=== PATIENT | female | born 1965 | race Caucasian/White ===

== ENCOUNTER 2024-05-20 16:14 | Emergency (ER) | payer SELFPAY ==
[2024-05-20 16:16] VITALS: BP 149/90; PULSE 91; RESP 20; TEMP 36.3; O2SAT 98
--- NOTE | 2024-05-20 16:31 | ED.GENADUL_ITS ---
Discharge Plan Disposition Patient Disposition: Home Condition: Stable Discharge Details Clinical Impression: Dysuria Primary Care Provider: None,None ED Provider: Corey Chávez Home Meds and New Rx's Prescriptions: New ciprofloxacin HCl 500 mg tablet 500 mg PO BID 10 Days Qty: 20 0RF Continued cyclobenzaprine 10 mg tablet 10 mg PO HS Discharge Instructions Instructions: Ciprofloxacin (Systemic), Dysuria (ED) Additional Instructions: You were seen in the emergency department for your dysuria and urinary freque ncy, you have had a history of chronic UTIs, unfortunately your AZO did interfere with her ability to run an accurate test though there was some scant bacteria present, I am treating you empirically with ciprofloxacin, you need to monitor your condition closely and return for any severe acute worsening especially with fever, spread to flank pain, nausea and weakness. Stay well- hydrated. Follow-up with PCP to seek referral to our Urology service for chronic UTIs. Referrals: [facility] [Provider Group] Shahida Dixon MD [ [facility] STAFF PHYSICIAN] - Discharge Data Discharge Date/Time-TO BE ENTERED AT DEPARTURE: 05/20/24 17:06 HPI General Date/Time Provider Initiated Documentation: 05/20/24 16:31 . HPI Narrative: 58 year-old female presents to ED today by RCT/ambulating with a chief complaint of urinary frequency/dysuria, long history of chronic UTIs since she was 11 y/o, with onset noted today. Quality described as burning, bladder feeling full, no radiation to flank pain, fever, nausea, vomiting, hematuria. Severity is described as moderate. Palliating factors include took AZO one hour prior to arrival. Provoking factors include nothing specific. Events leading up to the incident/Associated Symptoms: Patient states she has many allergies/reactions to many UTI treatments over the years, states cipro always seems to work well for her. Recently relocated to [place] from [place] and doesn't have access to her allergies/reactions. Patient not anticoagulated. Related Data Home Medications ?Medication ?Instructions ?Recorded ?Confirmed ciprofloxacin HCl 500 mg tablet 500 mg PO BID UTI 10 days #20 tabs 05/20/24 cyclobenzaprine 10 mg tablet 10 mg PO HS 05/20/24 05/20/24 Previous Rx's ?Medication ?Instructions ?Recorded ciprofloxacin HCl 500 mg tablet 500 mg PO BID UTI 10 days #20 tabs 05/20/24 Allergies Allergy/AdvReac Type Severity Reaction Status Date / Time Unable to Assess Allergy Unverified 05/20/24 16:29 General Stated Complaint: Urinary RADHA: 4 Review of Systems All systems reviewed & are unremarkable except as noted in HPI and below Exam Narrative Exam Narrative: GENERAL APPEARANCE: Well-nourished, non-toxic, awake and alert, atraumatic, no acute distress. SKIN: Warm, pink, dry, intact, without rashes/lesions/ulcerations. HEAD: Normocephalic, atraumatic, normal hair distribution for gender/age. EYES: Normal conjunctiva, no exudates on lids/lashes. ENT: Nares patent, no circumoral cyanosis, no facial swelling NECK: Supple, trachea midline, painless cervical ROM. LUNGS/CHEST: Non-labored respirations, normal A/P diameter, symmetrical expansion, no chest wall deformity HEART (CV/PV): No peripheral edema, no JVD. ABDOMEN: Soft, non-distended, no guarding, no suprapubic tenderness, no CVA tenderness to percussion bilaterally. MSK: Normal ROM, no swelling/deformity to bilateral UEs or LEs, moving all extremities without weakness, no cyanosis, spine midline without tenderness, normal curvature. NEURO: Mental Status AAOx4 - alert to person, place, time, events No facial droop, no forehead involvement. Motor: No focal weakness - strength 5/5 in bilateral UEs and LEs, proximal and distal, symmetric. Sensory: sensation intact to light touch globally. Gait normal: patient ambulated without ataxia into ED room. PSYCH: euthymic, cooperative, pleasant, appropriate speech Course Vital Signs Vital signs: Vital Signs Temperature 36.3 C L 05/20/24 16:16 Pulse 91 H 05/20/24 16:16 Respiratory Rate 20 05/20/24 16:16 Blood Pressure 149/90 H 05/20/24 16:16 Pulse Oximetry 98 05/20/24 16:16 Temperature 36.3 C L 05/20/24 16:16 Temperature Source Oral 05/20/24 16:16 Pulse 91 H 05/20/24 16:16 Respiratory Rate 20 05/20/24 16:16 Blood Pressure 149/90 H 05/20/24 16:16 Blood Pressure Position Sitting 05/20/24 16:16 Pulse Oximetry 98 05/20/24 16:16 Oxygen Delivery Method Room Air 05/20/24 16:16 Oxygen Flow Rate 0 05/20/24 16:16 Medical Decision Making This dictation utilizes [id number] dictation software and may contain unedited grammatical errors. 58 year-old female presents to ED today by RCT/ambulating with a chief complaint of urinary frequency/dysuria, long history of chronic UTIs since she was 11 y/o, with onset noted today. Quality described as burning, bladder feeling full, no radiation to flank pain, fever, nausea, vomiting, hematuria. Severity is described as moderate. Palliating factors include took AZO one hour prior to arrival. Provoking factors include nothing specific. Events leading up to the incident/Associated Symptoms: Patient states she has many allergies/reactions to many UTI treatments over the years, states cipro always seems to work well for her. Recently relocated to [place] from [place] and doesn't have access to her allergies/reactions. Patients' medical history: Chronic UTIs, history of pyelonephritis. Family and social history: Noncontributory. Pertinent exam findings / vital signs include no suprapubic tenderness, nontoxic vitals, no CVA tenderness to percussion bilaterally. Differential / pathologies of concern include urinary tract infection, unlikely sepsis, unlikely pyelonephritis. Diagnostic studies of: -Urinalysis-hopeful that her Azo dose has not interfered with her ability to test sample. -UA shows interference Interventions of: -Rx for ciprofloxacin. ED Course/Assessment/Plan: 58-year-old female presents with chronic UTIs, she has started taking AZO which interfered with her ability to take a sample, she does not have any CVA tenderness and has no suprapubic tenderness given her history of chronic UTI and her consistency of symptoms I am prescribing her an antibiotic, she will return for any acute worsening despite treatment especially with hematuria, fever, flank pain developing. Findings not consistent with pyelonephritis, obstructive uropathy. Disposition of dysuria. Patient verbalized understanding of the plan and return to ED criteria and engaged in shared decision making. Medical Records Medical records reviewed: Yes I reviewed the patient's medical records. Lab Data Lab results reviewed: Yes I reviewed the patient's lab results. 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 OPERATOR Ur Specific Falcon (1.005-1.025) 1.020 Urine Protein (Neg-Trace) mg/dL Color Interference Urine Ketones (Negative) mg/dL Color Interference Urine Blood (Negative) Color Interference Urine Nitrite (Negative) Color Interference Urine Bilirubin (Negative) Color Interference Urine Urobilinogen (Up to 0.2) mg/dL Color Interference Ur Leukocyte Esterase (Negative) Color Interference Urine RBC (0-2) HPF 20-50 H Urine WBC (0-5) HPF 0-2 Ur Epithelial Cells (Negative) HPF Negative Urine Crystals (Negative) HPF Negative Urine Bacteria (Negative) HPF Rare Urine Casts (Negative) LPF Negative Urine Mucus (Negative) Negative Ur Culture Indicated? No Urine Glucose (Negative) mg/dL Color Interference Quality:SDOH Health Related Social Needs: Health related social needs food insecurity (Z59.41), material hardship(utilities) (Z59.12), transportation insecurity (Z59.82), problems related to housing/economic circumstances (Z59.89) PFSH All Active Problems (Updated 05/20/24 @ 16:58 by ZAINAB Parker) Dysuria (Acute) Social History Smoking/Tobacco Use Status: Former Tobacco Use Quit Date: 10/31/19 Smoking risk assessment performed?: Yes Alcohol Intake: current Alcohol Intake frequency: holidays/special occasions only Alcohol type: wine Drug use: Current Sobriety Substance use type: marijuana
[2024-05-20 16:32] VITALS: BP 149/90; PULSE 91; RESP 20; TEMP 36.3; O2SAT 98
[2024-05-20 16:50] LABS: Clarity Clear (Clear)
[2024-05-20 16:51] LABS: Bilirubin Color Interference (Negative); Blood Color Interference (Negative); Glucose Color Interference mg/dL (Negative); Ketones Color Interference mg/dL (Negative); Leukocyte Esterase Color Interference (Negative); Nitrite Color Interference (Negative); Urobilinogen Color Interference mg/dL (Up to 0.2)
[2024-05-20 16:54] LABS: Bacteria Rare HPF (Negative); C & S Indicated? No; Casts Negative LPF (Negative); Crystals Negative HPF (Negative); Epithelial Cells Negative HPF (Negative); Mucus Negative (Negative); RBC 20-50 HPF (0-2); WBC 0-2 HPF (0-5)
[2024-05-20] MEDS: Ciprofloxacin 500 MG TAB PO (17:05)
--- OUTSIDE RECORDS SUMMARY | 2024-05-20 17:17 | XMS_ITS | Encounter Summary ---
Author Organization [facility] Address [address] [place] [address] Care Team Providers Care Office Equipment Mechanic Name Role Phone Unavailable Primary Care Provider Unavailabl e Encounter Details Date Type Department Care Team (Late st Contact Info) Description 09/11/2009 Results Only [facility] Laboratory Services - [facility] ([facility] [address], [place] [id number] Hussein Noland MD [address] [place] [address] Social History Tobacco Use Types Packs/Day Years Used Date Smoking Tobacco: Never Assessed Comments Unknown Sex and Gender Information Value Date Recorded Sex Assigned at Not on file Legal Sex Female 18:27 EST Gender Identity Not on file Sexual Orientation Not on file documented as of this encounter Plan of Treatment Not on file documented as of this encounter Procedures Procedure Name Priority Date/Time Associated Diagnosis Comments SURGICAL PATHOLOGY Routine 09/11/2009 0:00 EDT documented in this encounter Results * SURGICAL PATHOLOGY (09/11/2009 0:00 EDT) Pathology Report: SURGICAL PATHOLOGY REPORT ? Reports generated via electronic interface contain original data; ? however they are lacking the format of the original report. ? Caution should be taken when reading/interpreting unformatted reports. ? Name: ? EMRICK, MARK M ? Accession #: ? [id number] ? : ? 1965 (Age: 44) ??F ? Collect Date: ? 09/11/2009 ? Location: ? [facility] ? Receive Date: ? 09/11/2009 ? Provider: HUSSEIN NOLAND MD ? 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 Final Pathologic Diagnosis: ? A. ?Stomach, antrum, biopsies: ? 1. ?Reactive gastropathy. ? 2. ? Immunohistochemical stains for Helicobacter pylori are negative. ? B. ?Stomach, body, biopsies: ? 1. ?Mild, chronic gastritis. ? 2. ? Negative for Helicobacter pylori on H & E stained slides. ? C. ?? Esophagus, lower, biopsies: ? 1. ?? Squamocolumnar junctional mucosa with mild, chronic inflammation with reactive ?epithelial changes. ? 3. ?Negative for intestinal metaplasia/dysplasia. ? C. ?Esophagus, mid, biopsies: ? 1. ?Squamous mucosa without specific abnormality. ? Comment: ? Immunohistochemical staining was performed on this case to further ? characterize the lesion. ??Positive and negative controls stained appropriately. ? Block ?Antibody (Clone) ? Result ? A ?H. pylori (polyclonal, [facility]) ? Negative ? Results have been communicated to Dr. Noland on 09/12/2009 at 3 PM. ( ? Leanna)/mpl ? NOTE: ??One or more of the reagents used in immunohistochemical testing in this case may not have been cleared or approved by the U.S. Food and Drug ? Administration (FDA). ??The FDA has determined that such clearance or approval is not necessary. ??These tests are used for clinical purposes. ??They should not be regarded as investigational or for research. ??These reagents' ??performance ? characteristics have been determined by [facility]. ??This ? laboratory is certified under the Clinical Laboratory Improvement Amendments of 1988 (CLIA-88) as qualified to perform high complexity clinical laboratory ? testing. ? Document reviewed and electronically signed by: ? Jolene Wilkinson MD ? Report ??Date: 09/14/2009 16:22 ? By the signature above, the attending physician certifies that he/she has ? personally conducted a gross and/or microscopic examination of the described ? specimens and rendered or confirmed the above diagnosis. ? Specimen(s) Received: ? A. ?Gastric antrum ? B. ? Gastric body ? C. ? Lower esophagus ? D. ? Mid esophagus ? Clinical History: ? Epigastric/chest pain immediately after eating ? Gross Description: ? Received in [facility]'s fixative labelled Mark Valdes and #1 gastric ?? antrum are two biopsies, each measuring 0.3 x 0.3 x 0.2 cm. ??The specimens are submitted intact as (A). ? Received in [facility]'s fixative labelled Mark Valdes and #2 gastric body are two biopsies measuring 0.1 x 0.1 x 0.1 cm and 0.4 x 0.2 x 0.2 cm. ??The ? specimens are submitted intact as (B). ? Received in [facility]'s fixative labelled Mark Valdes and #3 lower ? esophagus are two biopsies measuring 0.3 x 0.2 x 0.2 cm and 0.5 x 0.2 x 0.1 cm. The specimens are submitted intact as (C). ? [facility] fix[facility] labelled Mark Valdes and #4 mid esophagus are two biopsies measuring 0.3 x 0.2 x 0.1 cm and 0.5 x 0.2 x 0.2 cm. ??The ? specimens are submitted intact as (D). ??(MADELINE Sandoval)/julien ? End of Report ? KINA CRUZ 09/11/2009 09/11/2009 19: 44 EDT us Hussein Noland MD PATHOLOGY ORDERABLES Final Resul t KINA CRUZ [address] [place] [address] documented in this encounter Visit Diagnoses Not on filedocumented in this encounter
--- OUTSIDE RECORDS SUMMARY | 2024-05-20 17:17 | XMS_ITS | Encounter Summary ---
Author Organization [facility] Address [address] [place] [address] Care Team Providers Care Roustabout Crew Name Role Phone Shahida Dixon MD Primary Care Provider [phone] Encounter Details Date Type Department Care Team (Late st Contact Info) Description 07/19/2010 Abstract [facility] General Surgery - [address] [id number] Michael Frausto MD [address] [facility], [address] [place] [phone] Social History Tobacco Use Types Packs/Day Years Used Date Smoking Tobacco: Never Assessed Comments Unknown Sex and Gender Information Value Date Recorded Sex Assigned at Not on file Legal Sex Female 18:27 EST Gender Identity Not on file Sexual Orientation Not on file documented as of this encounter Plan of Treatment Not on file documented as of this encounter Visit Diagnoses Not on filedocumented in this encounter Care Teams Roustabout Crew Relationship Specialty Start Date End Date Shahida Dixon MD [address] [place] [phone] PCP - General 09/13/09 documented as of this encounter
--- OUTSIDE RECORDS SUMMARY | 2024-05-20 17:17 | XMS_ITS | Encounter Summary ---
Author Organization [facility] Address [address] [place] [address] Care Team Providers Care Piano Regulator Name Role Phone Shahida Dixon MD Primary Care Provider [phone] Encounter Details Date Type Department Care Team (Late st Contact Info) Description 06/28/2010 Abstract [facility] General Surgery - [address] [id number] Michael Frausto MD [address] [facility], [address] [place] [address] Social History Tobacco Use Types Packs/Day Years [...] Diagnoses Not on filedocumented in this encounter Historical Medications * This list may reflect changes made after this encounter. dicyclomine (BENTYL) 10 mg capsule Take 10 mg by mouth 4 times daily as needed. 1 to 2 caps. 06/28/2010 amitriptyline (ELAVIL) 10 mg tablet Take 10 mg by mouth at bedtime. 06/28/2010 Ergocalciferol, Vitamin D2, 50,000 unit Tab Take 1 Tab by mouth. One tab 3 times weekly. 06/28/2010 lorazepam (ATIVAN) 1 mg tabletIndications :anxiety Take 1 mg by mouth 3 times daily as needed. Indications: ANXIETY 06/28/2010 HYDROCODONE BIT/ACETAMINOPHEN (HYDROCODONE-ACET AMINOPHEN ORAL) Take by mouth every 4 hours as needed. 1 to 2 prn 06/28/2010 DOCUSATE SODIUM ORAL Take 1 Tab by mouth 2 times daily. 06/28/2010 added in this encounter Care Teams Piano Regulator Relationship Specialty Start Date End Date Shahida Dixon MD [address] [place] [phone] PCP - General 09/13/09 documented as of this encounter
--- OUTSIDE RECORDS SUMMARY | 2024-05-20 17:17 | XMS_ITS | Encounter Summary ---
Author Organization [facility] Address [address] [place] [address] Care Team Providers Care Lens Silverer Name Role Phone Shahida Dixon MD Primary Care Provider [phone] Reason for Visit * Reason Comments New Patient Visit Carlos Enrique Encounter Details Date Type Department Care Team ([facility] Contact Info) Description 08/14/2010 15:00 EDT Office Visit [facility] General Surgery - [address] [id number] Michael Frausto MD [address] [facility], [address] [place] [address] Chest pain; Abdominal pain, chronic, epigastric Social History Tobacco Use Types Packs/Day Years Used Date Smoking Tobacco: Every Day Cigarettes 1 20 Smokeless Tobacco: Never Alcohol Use Standard Drinks/Week Comments No 0 (1 standard drink = 0.6 oz pur e alcohol) Comments Unknown Sex and Gender Information Value Date Recorded Sex Assigned at Not on file Legal Sex Female 18:27 EST Gender Identity Not on file Sexual Orientation Not on file documented as of this encounter Last Filed Vital Signs Vital Sign Reading Time Taken Comments Blood Pressure 127/75 08/14/2010 1449 EDT Pulse 88 08/14/2010 1449 EDT Temperature - - Respiratory Rate 18 08/14/2010 1449 EDT Oxygen Saturation - - Inhaled Oxygen Concentration - - Weight 86.2 kg (190 lb) 08/14/2010 1449 EDT Height 161.3 cm (5' 3.5) 08/14/2010 1449 EDT Body Mass Index 33.13 08/14/2010 1449 EDT documented in this encounter Progress Notes * Michael Frausto MD - 08/14/2010 1822 EDT This office note has been dictated. documented in this encounter Consult Notes * Michael Frausto MD - 08/29/2010 1209 EDT DIVISION OF GENERAL SURGERY CONSULTATION - 08/14/2010 I am asked by Dr Shahida Dixon to see Alisa Valdes in consultation because of persistent chest and abdomen pain. Our opinion is sought regarding whether she would be a candidate for antireflux procedure. HISTORY OF PRESENT ILLNESS: Alisa has a history of pain in the retrosternal area. She says it is aburning pain, it is there all the time now. Sometimes spreads to both sides of her chest, sometimesdown to the right upper quadrant. She said it started a couple years ago when she took medication initially for her multiple sclerosis. Shortly after starting that she developed the symptoms. Symptoms lasted until she stopped the medication and started Nexium. She thought it was the Nexium that made her feel better. She took Nexium for a while and then was completely asymptomatic for almost a year. She then developed more symptoms and the Nexium has not helped nor has another PPI and she has been on many of them. Her pain is constant. She had evaluation for reflux. Apparently somebody labeledher as having gastroesophageal reflux disease and she had an EGD. Apparently the EGD did not show anything to suggest any esophageal ulcerations or anything to account for persistent pain. In fact, she had fairly mild findings on EGD as I understand it. She also at some point had a pH probe, as well as manometry done. The pH probe, which I have did show some evidence of a correlation, however, I find it hard to determine since she says she has pretty much pain all the time. She refluxed according to the pH probe about 5.8% of the time, which is just above the normal range. Her manometry also showed a normal LES pressure of 20. That would speak against reflux. She had an upper GI study done at [facility] and that did not show any reflux. There was only a very small hiatal hernia apparently if any. I do not have those films to look at. She does have a history of alcohol and marijuana use, but she says she has been sober now for a year and a half and has not used any of those. PAST MEDICAL HISTORY: Includes some gastritis, at least an upper GI endoscopy showed some chronic gastritis, but she was on proton pump inhibitors at the time and they may just have identified changes from the proton pump inhibitors. She also has multiple sclerosis and that is improved since recentmedications. She has a history of hyperthyroidism, some depression and recurrent UTIs. She also hasa history of the substance abuse including alcohol and marijuana. She has had a cardiac stress testthat has been negative. She also had an ultrasound at one point that showed gallstones and she underwent a laparoscopic cholecystectomy. FAMILY HISTORY: Her family history is significant for her maternal grandfather had arthritis and heart disease. Maternal grandmother had arthritis, depression and heart disease and her mother who hashad arthritis, depression, heart disease, high blood pressure and a history of ovarian cancer. SOCIAL HISTORY: She currently is an every day smoker, smoking 1 pack a day for the past 20 years. She is not using alcohol or marijuana, as I said, for the past year and a half. ALLERGIES: ERYTHROMYCIN, which causes her anxiety. She took this when she was being treated empirically for H. pylori. She also blacks out when she takes PERCODAN. TETRACYCLINE, SULFA, CODEINE seemedto cause some or nausea and vomiting. DARVON causes her to have irritability. MEDICATIONS: Hydrocodone and Ativan. She said she was no longer using the docusate, vitamin D, the amitriptyline or the Bentyl. REVIEW OF SYSTEMS: Mainly related to what is already described in the HPI. OBJECTIVE: On physical exam, she is 190 pounds, 63 to 1/2 inches tall with a BMI of 33.13. Sclerae white. Chest is clear. Heart is regular. There is no chest tenderness or thoracic tenderness. There is some mild upper abdominal tenderness to deep palpation mainly deep in the epigastrium. I do not feel any masses or organomegaly. There is no obvious peripheral edema or other issues. ASSESSMENT: Certainly her symptoms do not sound like classic reflux. The fact that her symptoms disappeared for almost a year after stopping her multiple sclerosis medication and started again when she started taking that medication would make me suspect that the medication may have had something to do with it. She did get better while taking the Nexium, but then when she stopped the Nexium she was pain free for quite a significant period of time until her pain started again and this time the Nexium did not help, nor did any the other H2 blockers or PPIs. That would be most unusual for reflux. Certainly to have pain there all the time with no evidence of any deep ulceration or other issues does not fit with reflux nor does an LES pressure of 20 and a very marginal pH probe, which is probably just upper limit of normal variant. I believe she has pain, but I do not think this is reflux pain, I certainly do not think a wrap is indicated. There is nothing to tell me that we should consider a wrap even. I think we need to startfrom square 1 with her, she needs to be evaluated for other causes for her pain rather than reflux.She will follow up with her primary physician and her neurologist for that. Electronically Signed by Michael Frausto MD, FACS 08/29/2010 12:09 Michael Frausto MD, FACS [phone] - Michael Frausto MD, FACS - JG Job ID: SM Doc ID: [id number] Ext Doc ID: [id number] cc: Shahida Dixon MD documented in this encounter Plan of Treatment Not on file documented as of this encounter Visit Diagnoses Diagnosis Chest pain Chest pain, unspecified Abdominal pain, chronic, epigastric Abdominal pain, epigastric documented in this encounter Care Teams Lens Silverer Relationship Specialty Start Date End Date Shahida Dixon MD [address] [place] [phone] PCP - General 09/13/09 documented as of this encounter
--- OUTSIDE RECORDS SUMMARY | 2024-05-20 17:17 | XMS_ITS | Encounter Summary ---
Author Organization [facility] Address [address] [place] [address] Care Team Providers Care Cardiologist Name Role Phone Shahida Dixon MD Primary Care Provider [phone] Encounter Details Date Type Department Care Team (Late st Contact Info) Description 09/15/2009 Results Only [facility] Laboratory Services - [facility] ([facility]) [address] [place], [place] [address] Hussein Noland MD [address] [place], [place] [id number] Social History Tobacco Use Types Packs/Day Years [...] Date/Time Associated Diagnosis Comments SURGICAL PATHOLOGY Routine 09/15/2009 0:00 EDT documented in this encounter Results * SURGICAL PATHOLOGY (09/15/2009 0:00 EDT) Pathology Report: SURGICAL PATHOLOGY REPORT ? Reports generated via electronic interface contain original data; ? however they are lacking the format of the original report. ? Caution should be taken when reading/interpreting unformatted reports. ? Name: ? JOVANICK, MARK M ? Accession #: ? [id number] ? : ? 1965 (Age: 44) ??F ? Collect Date: ? 09/15/2009 ? Location: ? [facility] ? Receive Date: ? 09/15/2009 ? Provider: HUSSEIN NOLAND MD ? Copy to: DOBBINS BRODZINSKI TRUST EVALUATION SUPERVISOR ? Final Pathologic Diagnosis: ? Gallbladder, cholecystectomy: ? 1. ?Acute and chronic cholecystitis with reactive epithelial changes. ?? See comment. ? 2. ? Cholelithiasis. ? Comment: ? This case was shown at intradepartmental consultation conference on ? 05/25/10. ??(Dr. Leyva)/lgk ? Document reviewed and electronically signed by: ? Gabriela Leyva MD ? Report ??Date: 09/19/2009 16:47 ? By the signature above, the attending physician certifies that he/she has ? personally conducted a gross and/or microscopic examination of the described ? specimens and rendered or confirmed the above diagnosis. ? Specimen(s) Received: ? Gallbladder with stones ? Clinical History: ? Gallstones, epigastric pain ? Gross Description: ? Received in formalin labelled Emrick, Mark and gallbladder with ? stones is a partially incised product of a cholecystectomy measuring 7.7 cm in length by 2.8 cm in diameter. ??The serosa is werner-pink and glistening. ??The ? mucosa is werner-green, smooth to velvety and the underlying wall averages 0.2 cm ?? in thickness. ??The lumen contains a minimal amount of green mucoid bile with ? multiple black, yellow, multifaceted choleliths measuring 4.5 x 2.5 x 2.0 cm in aggregate. ??The cystic duct measures 0.3 cm in length, 0.3 cm in diameter and is not grossly patent. ??There is a 0.4 cm in greatest dimension cystic duct node ?? present. ??Four electronics parts sales representative sections are submitted in one cassette which ? includes the inked cystic duct margin en face, the cystic duct lymph node and ?? two sections of gallbladder. (Kathi Rinaldi/mpl ? End of Report ? [facility] 09/15/2009 09/15/2009 7:3 8 EDT us Hussein Noland MD PATHOLOGY ORDERABLES Final Resul t Performing Organization Address City/State/[facility] Co de Phone Number [facility] [address] [place] [address] documented in this encounter Visit Diagnoses Not on filedocumented in this encounter Care Teams Cardiologist Relationship Specialty Start Date End Date Shahida Dixon MD [address] [phone] PCP - General 09/13/09 documented as of this encounter
--- OUTSIDE RECORDS SUMMARY | 2024-05-20 17:17 | XMS_ITS | Encounter Summary ---
Author Organization [facility] Address [address] [place] [address] Care Team Providers Care Project Manager Name Role Phone Shahida Dixon MD Primary Care Provider Encounter Details Date Type Department Care Team (Late st Contact Info) Description 05/16/2005 Results Only [facility] [address] [place] [address] Ayanna Dejesus, LIBRARIAN ASSISTANT [address] [facility],[address] [phone] Social History Tobacco Use Types Packs/Day Years [...] Procedure Name Priority Date/Time Associated Diagnosis Comments CYTOPATHOLOGY Routine 05/16/2005 0:00 EST documented in this encounter Results * CYTOPATHOLOGY (05/16/2005 0:00 EST) Pathology Report: CYTOPATHOLOGY REPORT Reports generated via electronic interface contain original data; however they are lacking the format of the original report. Caution should be taken when reading/interpreti ng unformatted reports. Name: ? MARK CHINO ? Accession #: ? [id number] : ? 1965 (Age: 39) ??F ?Collect Date: ? 05/16/2005 Location: ? [facility] ? Receive Date: ? 05/20/2005 Provider: ?AYANNA DEJESUS LIBRARIAN ASSISTANT Copy to: ? Specimen/Source: ?ThinPrep Pap Test, Cervix/Endocervix, processed on [employer] ThinPrep Imaging System, with manual evaluation Last Menstrual Period: ? 05/09/05 Other: ? HPVA - HPV testing requested if ASC-US on the current ThinPrep Pap test. ? SPECIMEN ADEQUACY ? Satisfactory for Evaluation - transformation zone component present GENERAL CATEGORIZATION ? Negative for Intraepithelial Lesion or Malignancy ? Document reviewed and electronically signed by: ? NASIMA Piedra(ASCP) ? Report Date: ??05/21/2005 13:30 End of Report [facility] 05/16/2005 05/20/2005 us Ayanna Dejesus NP PATHOLOGY ORDERABLES Final R esult [facility] [address] [place] [address] documented in this encounter Visit Diagnoses Not on filedocumented in this encounter Care Teams Project Manager Relationship Specialty Start Date End Date Shahida Dixon MD [address] [place] [phone] PCP - General 09/13/09 documented as of this encounter
--- OUTSIDE RECORDS SUMMARY | 2024-05-20 17:17 | XMS_ITS | Encounter Summary ---
Author Organization [facility] Address [address] [place] [address] Care Team Providers Care Global Marketing Intern Name Role Phone Shahida Dixon MD Primary Care Provider [phone] Encounter Details Date Type Department Care Team (Late st Contact Info) Description 08/13/2010 Abstract [facility] General Surgery - [address] [id number] Michael Frausto MD [address] [facility], [address] [place] [phone] Social History Tobacco Use Types Packs/Day Years [...] on filedocumented in this encounter Care Teams Global Marketing Intern Relationship Specialty Start Date End Date Shahida Dixon MD [address] [place] [phone] PCP - General 09/13/09 documented as of this encounter
--- OUTSIDE RECORDS SUMMARY | 2024-05-20 17:17 | XMS_ITS | Clinical Summary ---
Author Organization [facility] Address [address] [place] [address] Care Team Providers Care Pathology Supervisor Name Role Phone Shahida Dixon MD Primary Care Provider Allergies Active Allergy Reactions Criticality Noted Date Comments Codeine Nausea Only 06/28/2010 Side effect tingling Propoxyphene N-Acetaminophen 06/28/2010 Irritability Erythromycin Anxiety High 08/14/2010 Oxycodone-Aspirin Other (See Comments) High 08/15/19 11 Blacks out Sulfa (Sulfonamide Antibiotics) Nausea And Vomiting 06/28/2010 Tetracyclines 06/28/2010 Medications DOCUSATE SODIUM ORAL Take 1 Tab by mouth 2 times daily. 06/28/2010 Active HYDROCODONE BIT/ACETAMINOPH EN (HYDROCODONE-AC ETAMINOPHEN ORAL) Take by mouth every 4 hours as needed. 1 to 2 prn 06/28/2010 Active lorazepam (ATIVAN) 1 mg tabletIndicatio ns:anxiety Take 1 mg by mouth 3 times daily as needed. Indications: ANXIETY 06/28/2010 Active Ergocalciferol, Vitamin D2, 50,000 unit Tab Take 1 Tab by mouth. One tab 3 times weekly. 06/28/2010 Active amitriptyline (ELAVIL) 10 mg tablet Take 10 mg by mouth at bedtime. 06/28/2010 Active dicyclomine (BENTYL) 10 mg capsule Take 10 mg by mouth 4 times daily as needed. 1 to 2 caps. 06/28/2010 Active Active Problems No known active problems Surgical History Surgery Date Site/Laterality Comments CHOLECYSTECTOMY UPPER GI ENDOSCOPY 09.11.2009 EDG with biopsy UPPER GI ENDOSCOPY 02.16.2010 espohageal manometry UPPER GASTROINTESTINAL ENDOSCOPY 8.27.2010 ESOPHAGEAL MOTILITY STUDY 02.16.2010 Medical History Medical History Date Comments Reflux Gastritis Multiple sclerosis (HCC-CMS) Recurrent UTI Hyperthyroidism Psychiatric problem Depression GERD (gastroesophageal reflux disease) Multiple sclerosis (HCC-CMS) Recurrent UTI Family History Medical History Relation Comments Arthritis Maternal Grandfather Heart Disease Maternal Grandfather Arthritis Maternal Grandmother Depression Maternal Grandmother Heart Disease Maternal Grandmother Arthritis Mother Depression Mother Heart Disease Mother High Blood Pressure Mother Ovarian Cancer Mother Relation Status Comments Maternal Grandfather Maternal Grandmother Mother Alive Social History Tobacco Use Types Packs/Day Years [...] on file Sexual Orientation Not on file Obstetrics History Last Filed Vital Signs Vital Sign Reading Time Taken Comments Blood Pressure 127/75 08/14/2010 1449 EDT Pulse 88 08/14/2010 1449 EDT Temperature - - Respiratory Rate 18 08/14/2010 1449 EDT Oxygen Saturation - - Inhaled Oxygen Concentration - - Weight 86.2 kg (190 lb) 08/14/2010 1449 EDT Height 161.3 cm (5' 3.5) 08/14/2010 1449 EDT Body Mass Index 33.13 08/14/2010 1449 EDT Plan of Treatment Health Maintenance Due Date Last Done Comments Hepatitis C Screen 1965 Hepatitis B Vaccine (1 of 3 - 19+ 3-dose series) 08/06 COVID-19 Vaccine (2023- season) 2023 Care Teams Pathology Supervisor Relationship Specialty Start Date End Date Shahida Dixon MD [address] [place] [phone] PCP - General 09/13/09
--- OUTSIDE RECORDS SUMMARY | 2024-05-20 17:17 | XMS_ITS | Encounter Summary ---
Author Organization [facility] Address [address] [place] [address] Care Team Providers Care Rehabilitation Assistant Name Role Phone Unavailable Primary Care Provider Unavailabl e Encounter Details Date Type Department Care Team (Late st Contact Info) Description 11/14/2008 Orders Only [facility] Laboratory Services - [facility] ([facility]) [address] [place], [place] [id number] Shahida Gallegos MD [address] [facility] [address] [place] [address] Social History Tobacco Use Types Packs/Day [...] Priority Date/Time Associated Diagnosis Comments CYTOPATHOLOGY Routine 11/14/2008 0:00 EDT documented in this encounter Results * CYTOPATHOLOGY (11/14/2008 0:00 EDT) Pathology Report: CYTOPATHOLOGY REPORT ? Reports generated via electronic interface contain original data; ? however they are lacking the format of the original report. ? Caution should be taken when reading/interpreti ng unformatted reports. ? Name: ? MARK CHINO ? Accession #: ? [id number] ? : ? 1965 (Age: 43) ??F ?Collect Date: ? 11/14/2008 ? Location: ? [facility] ? Receive Date: ? 11/16/2008 ? Provider: ?SHAHIDA GALLEGOS MD ? Copy to: ? Specimen/Source: ?Pap Test, Cervix/Endocervix, ThinPrep Imaging System ? with manual evaluation ? Last Menstrual Period: ? 6/09 ? Hormonal/Contracep tive Status: ? Tubal ligation ? Previous Gynecologic Pathology: ? Yes: abnromal pap years ago ? Other: ? HPVA - HPV testing requested if ASC-US on the current ThinPrep Pap test. ? SPECIMEN ADEQUACY ? Satisfactory for Evaluation ? - transformation zone component absent ? GENERAL CATEGORIZATION ? Negative for Intraepithelial Lesion or Malignancy ? INTERPRETATION ? Shift in justina present suggestive of bacterial vaginosis. ? Document reviewed and electronically signed by: ? Aisha Wolfe, CT(ASCP) ? Report Date: ??11/17/2008 13:20 ? End of Report ? [facility] 11/14/2008 11/16/2008 us Shahida Gallegos MD PATHOLOGY ORDERABLES Final Resul t [facility] [address] [place] [address] documented in this encounter Visit Diagnoses Not on filedocumented in this encounter
--- OUTSIDE RECORDS SUMMARY | 2024-05-20 17:17 | XMS_ITS | Encounter Summary ---
Author Organization [facility] Address [address] [place] [address] Care Team Providers Care Marketing Analytics Manager Name Role Phone Shahida Gallegos MD Primary Care Provider [phone] Encounter Details Date Type Department Care Team (Late st Contact Info) Description 08/26/2012 Results Only [facility] Laboratory Services - [facility] [place] [address] [place], [place] [address] Shahida Galelgos MD [address] [place] [address] Social History Tobacco Use Types [...] Procedure Name Priority Date/Time Associated Diagnosis Comments PAP TEST- RESULT ONLY Routine 08/26/2012 0:00 EDT documented in this encounter Results * PAP TEST- RESULT ONLY (08/26/2012 0:00 EDT) Pathology Report: CYTOPATHOLOGY REPORT Reports generated via electronic interface contain original data; however they are lacking the format of the original report. Caution should be taken when reading/interpreti ng unformatted reports. Name: ? MARK CHINO ? Accession #: ? [id number] : ? 1965 (Age: 47) ??F ?Collect Date: ? 08/26/2012 Location: ? [facility] ? Receive Date: ? 08/31/2012 Provider: ?SHAHIDA GALLEGOS MD Copy to: ? Specimen/Source: ?Pap Test, Cervix/Endocervix, ThinPrep Imaging System with manual evaluation Last Menstrual Period: ? 08/19/12 Hormonal/Contracep tive Status: ? Tubal ligation ? SPECIMEN ADEQUACY ? Satisfactory for Evaluation - transformation zone component present GENERAL CATEGORIZATION ? Negative for Intraepithelial Lesion or Malignancy INTERPRETATION ? Shift in justina present suggestive of bacterial vaginosis. ? Document reviewed and electronically signed by: ? NASIMA Piedra(ASCP) ? Report Date: ??09/04/2012 13:58 End of Report [facility] 08/26/2012 08/31/2012 us Shahida Gallegos MD PATHOLOGY ORDERABLES Final Resul t [facility] [address] [place] [address] documented in this encounter Visit Diagnoses Not on filedocumented in this encounter Care Teams Marketing Analytics Manager Relationship Specialty Start Date End Date Shahida Gallegos MD [address] [place] [phone] PCP - General 09/13/09 documented as of this encounter
--- OUTSIDE RECORDS SUMMARY | 2024-05-20 17:17 | XMS_ITS | Referral Summary ---
Author Organization [facility] Address [address] [place] [address] Care Team Providers Care Reinsurance Claim Analyst Name Role Phone Shahida Dixon MD Primary Care Provider [phone] Allergies Active Allergy Reactions Criticality Noted Date [...] Active Active Problems No known active problems Social History Tobacco Use Types Packs/Day Years [...] on file Sexual Orientation Not on file Last Filed Vital Signs Vital Sign Reading [...] 33.13 08/14/2010 1449 EDT Plan of Treatment Not on file Care Teams Reinsurance Claim Analyst Relationship Specialty Start Date End Date Shahida Dixon MD [address] [place] [phone] PCP - General 09/13/09
--- OUTSIDE RECORDS SUMMARY | 2024-05-20 17:18 | XMS_ITS | Encounter Summary ---
Author Organization [facility] Address [place] [id number] Care Team Providers Care Shovel Operator Name Role Phone Shahida Dixon MD Primary Care Provider [phone] Encounter Details Date Type Department Care Team (Late st Contact Info) Description 03/20/2010 9:00 AM EST Procedure visit [place] [address] Social History Tobacco Use Types Packs/Day Years Used Date Smoking Tobacco: Never Assessed Sex and Gender Information Value Date Recorded Sex Assigned at Not on file Gender Identity Not on file Sexual Orientation Not on file documented as of this encounter Plan of Treatment Not on file documented as of this encounter Visit Diagnoses Not on filedocumented in this encounter Care Teams Shovel Operator Relationship Specialty Start Date End Date Shahida Dixon MD [address] [place] [address] PCP - General 03/20/10 documented as of this encounter
--- OUTSIDE RECORDS SUMMARY | 2024-05-20 17:18 | XMS_ITS | Encounter Summary ---
Author Organization [facility] Address [address] [place] [address] Care Team Providers Care Lining Ironer Name Role Phone Shahida Dixon MD Primary Care Provider [phone] Encounter Details Date Type Department Care Team (Late st Contact Info) Description 10/01/2000 Results Only [facility] - [facility] [address] [place] [address] Ayanna Dejesus, PLASTIC AND RECONSTRUCTIVE SURGEON [address] [facility],[address] [phone] Social History Tobacco Use Types [...] Priority Date/Time Associated Diagnosis Comments CYTOPATHOLOGY Routine 10/01/2000 0:00 EDT documented in this encounter Results * CYTOPATHOLOGY (10/01/2000 0:00 EDT) Pathology Report: CYTOPATHOLOGY REPORT Reports generated via electronic interface contain original data; however they are lacking the format of the original report. Caution should be taken when reading/interpreti ng unformatted reports. Name: ? MARK CHINO ? Accession #: ? [id number] : ? 1965 (Age: 35) ??F ?Collect Date: ? 10/01/2000 Location: ? [facility] ? Receive Date: ? 10/03/2000 Provider: ?AYANNA DEJESUS PLASTIC AND RECONSTRUCTIVE SURGEON Copy to: ? Specimen/Source: ?ThinPrep Pap Test, Cervix/Endocervix Last Menstrual Period: ? 08/11/00 Other: ? DHPV - HPV testing requested if ASCUS/WILLOW on the current ThinPrep Pap test. ? SPECIMEN ADEQUACY ? Satisfactory for evaluation. GENERAL CATEGORIZATION ? Benign Cellular Changes DESCRIPTIVE DIAGNOSIS ? 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 ? Document reviewed and electronically signed by: ? NASIMA Bardales(ASCP) ? Report Date: ??10/06/2000 11:24 End of Report [facility] 10/01/2000 10/03/2000 us Ayanna Dejesus NP PATHOLOGY ORDERABLES Final R esult [facility] [address] [place] [address] documented in this encounter Visit Diagnoses Not on filedocumented in this encounter Care Teams Lining Ironer Relationship Specialty Start Date End Date Shahida Dixon MD [address] [place] [phone] PCP - General 09/13/09 documented as of this encounter
--- OUTSIDE RECORDS SUMMARY | 2024-05-20 17:18 | XMS_ITS | Encounter Summary ---
Author Organization [facility] [place] [address] Care Team Providers Care Instructor Adjunct Surgical Technician Name Role Phone Shahida Dixon MD Primary Care Provider Encounter Details Date Type Department Care Team (Late st Contact Info) Description 03/20/2010 11:20 AM EST [place] [phone] Juan Dc MD Social History Tobacco Use Types Packs/Day Years Used Date Smoking Tobacco: Never Assessed Sex and Gender Information Value Date Recorded Sex Assigned at Not on file Gender Identity Not on file Sexual Orientation Not on file documented as of this encounter Plan of Treatment Not on file documented as of this encounter Visit Diagnoses Not on filedocumented in this encounter Care Teams Instructor Adjunct Surgical Technician Relationship Specialty Start Date End Date Shahida Dixon MD [address] [place] [address] PCP - General 03/20/10 documented as of this encounter
--- OUTSIDE RECORDS SUMMARY | 2024-05-20 17:18 | XMS_ITS | Encounter Summary ---
Author Organization [facility] Address [address] [place] [address] Care Team Providers Care Grain Mill Products Inspector Name Role Phone Shahida Dixon MD Primary Care Provider [phone] Encounter Details Date Type Department Care Team (Late st Contact Info) Description 02/01/2004 Results Only [facility] - Maple conversion [address] [place] [address] Ayanna Dejesus, REMELT PAN TANK OPERATOR [address] [facility],[address] [phone] Social History Tobacco Use Types [...] Priority Date/Time Associated Diagnosis Comments CYTOPATHOLOGY Routine 02/01/2004 0:00 EDT documented in this encounter Results * CYTOPATHOLOGY (02/01/2004 0:00 EDT) Pathology Report: CYTOPATHOLOGY REPORT Reports generated via electronic interface contain original data; however they are lacking the format of the original report. Caution should be taken when reading/interpreti ng unformatted reports. Name: ? MARK CHINO ? Accession #: ? [id number] : ? 1965 (Age: 38) ??F ?Collect Date: ? 02/01/2004 Location: ? [facility] ? Receive Date: ? 02/03/2004 Provider: ?AYANNA DEJESUS REMELT PAN TANK OPERATOR Copy to: ? Specimen/Source: ?ThinPrep Pap Test, Cervix Last Menstrual Period: ? 01/13/2004 Other: ? HPVA - HPV testing requested if ASC-US on the current ThinPrep Pap test. ? SPECIMEN ADEQUACY ? Satisfactory for Evaluation - transformation zone component absent GENERAL CATEGORIZATION ? Negative for Intraepithelial Lesion or Malignancy ? Document reviewed and electronically signed by: ? DAKOTA Caballero(ASCP) ? Report Date: ??02/07/2004 12:57 End of Report [facility] 02/01/2004 02/03/2004 us Ayanna Dejesus NP PATHOLOGY ORDERABLES Final R esult [facility] [address] [place] [address] documented in this encounter Visit Diagnoses Not on filedocumented in this encounter Care Teams Grain Mill Products Inspector Relationship Specialty Start Date End Date Shahida Dixon MD [address] [place] [phone] PCP - General 09/13/09 documented as of this encounter
--- OUTSIDE RECORDS SUMMARY | 2024-05-20 17:18 | XMS_ITS | Clinical Summary ---
Author Organization [facility] [place] [address] Care Team Providers Care Steam Box Hand Name Role Phone Shahida Dixon MD Primary Care Provider [phone] Allergies Active Allergy Reactions Criticality Noted Date Comments Erythromycin Base CIS - DIARRHEA Morphine Sulfate CIS - anxiety Tetracyclines High CIS - Anaphylaxis Medications Medication Sig Dispensed Refills Start Date End Date Status glatiramer (COPAXONE) 20 mg injection 20 MG = 1 Kit(s), SQ, Once daily 03/20/2010 Active pantoprazole (PROTONIX) 40 mg tablet 02/27/2010 Active hydroCODone-acetaminoph en (NORCO) 10-325 mg per tablet 02/27/2010 Active Social History Tobacco Use Types Packs/Day Years Used Date Smoking Tobacco: Never Assessed Sex and Gender Information Value Date Recorded Sex Assigned at Not on file Gender Identity Not on file Sexual Orientation Not on file Plan of Treatment Health Maintenance Due Date Last Done Comments CT Colonography 1965 Colonoscopy 1965 Colorectal Cancer Screening 1965 FIT DNA 1965 FIT 1965 Sigmoidoscopy (10 year) with FIT yearly 1965 Sigmoidoscopy 1965 HIV screen 08/06/1985 Hepatitis C Screening 08/06/1985 Hepatitis B vaccine (0-59 yrs) (1) 08/06/1986 Tetanus/Diphtheria/Pertussis Vaccines (1 - Tdap) 08/06 HPV test 08/06/1997 PAP Smear 08/06/1997 Breast Cancer Share Decision Needed 2007 Breast Cancer screening 2007 Pneumoccocal Vaccine: 50+ (1 of 1 - PCV) 08/06/2017 Zoster vaccine (1 of 2) 08/06/2017 Advance Directive 08/06/2022 Covid-19 Vaccine (1 - 2023- season) 2023 Influenza (Flu) vaccine (1 o f 1 - Influenza standard series) 12/28/2023 Care Teams Steam Box Hand Relationship Specialty Start Date End Date Shahida Dixon MD [address] [place] [address] PCP - General 03/20/10
--- OUTSIDE RECORDS SUMMARY | 2024-05-20 17:18 | XMS_ITS | Encounter Summary ---
[place] [address] Care Team Providers Care Planer Chain Offbearer Name Role Phone Unavailable Primary Care Provider Unavailabl e Encounter Details Date Type Department Care Team ([facility] st Contact Info) Description 02/27/2010 3:00 PM EDT Follow[place] [phone] Juan Dc MD Social History Tobacco Use [...]
== END 2024-05-20 17:06 | disposition home or self-care (01) ==
LOC: ER 17:16
PROVIDERS: Emergency Provider Physician Assistant
DX: R30.0 Dysuria (principal); R35.0 Frequency of micturition; Z59.41 Food insecurity; Z59.12 Inadequate housing utilities; Z59.82 Transportation insecurity; Z59.89 Other problems related to housing and economic circumstances; Z87.440 Personal history of urinary (tract) infections
CPT/HCPCS: 99283; 81003; 81015

== ENCOUNTER 2024-07-23 07:31 | Emergency (ER) | payer SELFPAY ==
[2024-07-23 07:37] VITALS: BP 171/86; PULSE 81; RESP 22; TEMP 36.9; O2SAT 98
[2024-07-23 07:48] VITALS: BP 171/86; PULSE 81; RESP 22; TEMP 36.9; O2SAT 98
[2024-07-23 08:26] LABS: Bilirubin Color Interference (Negative); Blood Color Interference (Negative); Clarity Sl Cloudy (Clear); Glucose Color Interference mg/dL (Negative); Ketones Color Interference mg/dL (Negative); Leukocyte Esterase Color Interference (Negative); Nitrite Color Interference (Negative); Specific Gravity 1.006 (1.005-1.025); Urobilinogen Color Interference mg/dL (Up to 0.2)
[2024-07-23 08:27] LABS: Bacteria Few HPF (Negative); C & S Indicated? Yes; Casts Negative LPF (Negative); Crystals Negative HPF (Negative); Epithelial Cells Rare HPF (Negative); Mucus Negative (Negative); RBC >50 HPF (0-2)
--- NOTE | 2024-07-23 08:32 | DI.CT_ITS ---
Exam(s) CT RENAL COLIC WO EXAM: CT RENAL COLIC WO CLINICAL HISTORY: right flank and urethra pain. TECHNIQUE: Imaging Protocol: Axial computed tomography images with coronal and sagittal reformatted images were created and reviewed CONTRAST MATERIAL: Intravenous: none Oral: None COMPARISON: CT ABD/PELVIC CT from 09/24/2009 FINDINGS: VISUALIZED LUNG BASES: No nodules nor pleural effusions evident. ABDOMEN: There is no ascites. LIVER: There are no obvious focal hepatic lesions evident of this noninfused study. GALLBLADDER/BILIARY: The gallbladder is surgically absent. CBD is not dilated. PANCREAS: No evidence of pancreatic mass nor dilatation of the pancreatic duct. SPLEEN: Spleen is not enlarged. No obvious intrasplenic lesions. ADRENALS: There are no significant adrenal masses. KIDNEYS:No cysts evident. No solid renal masses. No calculi nor hydronephrosis.. No hydroureter. No radiopaque calculi in the nondistended urinary bladder. Phleboliths are noted in both sides of the pelvis. ABDOMINAL AORTA: Calcified. There is mild fusiform dilatation of the infrarenal abdominal aorta with maximum diameter 2.7 cm. However, the abdominal aorta above this level measures 2.1 cm. Common floyd ac arteries are calcified but not enlarged. LYMPH NODES: There is no retroperitoneal nor paraaortic adenopathy. ABDOMINAL WALL: No evidence of significant anterior abdominal wall nor inguinal hernia. GI: There is no evidence of bowel obstruction, free air, nor abscess. PELVIS: LYMPH NODES: There is no intrapelvic nor inguinal adenopathy. GI: No evidence of appendicitis.There is sigmoid diverticuli but no evidence of acute diverticulitis. URINARY BLADDER: No calculi nor obvious masses evident REPRODUCTIVE: Uterus and adnexal regions appear unremarkable. No masses nor fluid in the pelvis. OSSEOUS: There is some stool increased density on both sides of the sacroiliac joints probably indica ting element of sacroiliitis. There is no ankylosis of the SI joints. No fractures. No osseous les ions evident. Moderate disc space narrowing at L3-4 noted. IMPRESSION: 1. No evidence urinary tract calculi nor hydronephrosis nor hydroureter. 2. No evidence of appendicitis nor acute diverticulitis. 3. No acute findings in the abdomen and pelvis. Report called by myself to ER provider 07/23/2024 at 8:50 a.m. RADIATION DOSE DELIVERED: 578.85mGy.cm Total DLP DATA REPOSITORY: All CT scans at this facility are submitted to the National Radiology Data Registry (NRDR) Dose Index Registry (DIR) with the [employer] (ACR). RADIATION OPTIMIZATION: All CT scans at this facility use at least one of these dose optimization te chniques: automated exposure control; mA and/or kV adjustment per patient size (includes targeted exa ms where dose is matched to clinical indication); or iterative reconstruction.
[2024-07-23] MEDS: Ketorolac 30 MG/ML VIAL IM (08:47)
--- NOTE | 2024-07-23 10:07 | ED.GENADUL_ITS ---
Discharge Plan Disposition Patient Disposition: Home Condition: Stable Discharge Details Clinical Impression: UTI (urinary tract infection), Elevated blood pressure reading Primary Care Provider: None,None ED Provider: Tray Carmona Home Meds and New Rx's Prescriptions: New ciprofloxacin HCl 500 mg Tablet 500 mg PO BID Qty: 13 0RF Continued cyclobenzaprine 10 mg tablet 10 mg PO HS Discharge Instructions Instructions: Urinary Tract Infection, Adult ED, High Blood Pressure ED Additional Instructions: CT imaging of your abdomen pelvis revealed incidental finding of mild fusiform dilatation of the infrarenal abdominal aorta with maximum diameter of 2.7 cm. Please be sure to follow this up with your primary care physician for continued monitoring. Take full course of antibiotic as prescribed. Please follow-up with your primary care physician. Your blood pressure was elevated today. Please be sure to discuss this with your doctor in follow-up. Additional outpatient diagnostic testing and treatment may be necessary should blood pressure been elevated. Return to the emergency department immediately for any worsening or new concerning symptoms. Stand Alone Forms: Work Release Referrals: Zeynep Humphries RN [Emergency Nurse] - [facility] General Mode of arrival: ambulatory . Date/Time Provider Initiated Documentation: 07/23/24 07:39 . Limitations to Documentation: no limitations . Information obtained by: patient . HPI Narrative: HISTORY OF PRESENT ILLNESS The patient is a 58-year-old female with urinary symptoms including pressure, pain, dysuria, hematuria with clots, and right lower back pain, unrelieved by Azo. Accompanied by her . She reports significant discomfort and anxiety, initially attributing her symptoms to recurrent UTI, managed with Azo. This morning, she noticed blood and thumb-sized clots in her urine, suspecting a kidney stone. She also reports urethral burning and persistent lower back pain. No recent abnormal vaginal discharge or fevers. History of kidney stones, with procedures in 2017 and three years later. First stone near ureter, second in kidney. Both stents removed 14 days post-procedure. For the past 10 days, she has experienced severe right lower back pain, initially thought to be sciatica, progressively worsening with intermittent relief. Despite the pain, she continues working. Diagnosed with prolapsing bladder and rectum by [facility], no changes reported. Occasionally uses glycerin suppositories for bowel movements. Related Data Home Medications ?Medication ?Instructions ?Recorded ?Confirmed cyclobenzaprine 10 mg tablet 10 mg PO HS 05/20/24 05/20/24 ciprofloxacin HCl 500 mg tablet 500 mg PO BID #13 tabs 07/23/24 Previous Rx's ?Medication ?Instructions ?Recorded ciprofloxacin HCl 500 mg tablet 500 mg PO BID #13 tabs 07/23/24 Allergies Allergy/AdvReac Type Severity Reaction Status Date / Time Sulfa (Sulfonamide Allergy Intermediate Other (See Verified 07/23/24 08:22 Antibiotics) Comment) sulfamethoxazole (From AdvReac Other (See Verified 07/23/24 08:22 Bactrim) Comment) trimethoprim (From Bactrim) AdvReac Other (See Verified 07/23/24 08:22 Comment) General Stated Complaint: Urinary RADHA: 3 Review of Systems All systems reviewed & are unremarkable except as noted in HPI and below Constitutional Constitutional: Denies fever(s) Exam Narrative Exam Narrative: PHYSICAL EXAM General Appearance: Patient visibly uncomfortable while standing. Vital signs: BP 171/86, HR 81, RR 22, Temp 36.9, SpO2 98% on room air. HEENT: Within normal limits. Respiratory: Lungs clear. Cardiovascular: Heart sounds normal, regular rate and rhythm. Skin: Warm and dry, no rash. Neurological: Normal. Abdomen: Soft nontender nondistended Course Vital Signs Vital signs: Vital Signs Temperature 36.9 C 07/23/24 07:37 Pulse 81 07/23/24 07:37 Respiratory Rate 22 07/23/24 07:37 Blood Pressure 171/86 H 07/23/24 07:37 Pulse Oximetry 98 07/23/24 07:37 Temperature 36.9 C 07/23/24 07:48 Pulse 81 07/23/24 07:48 Respiratory Rate 22 07/23/24 07:48 Blood Pressure 171/86 H 07/23/24 07:48 Pulse Oximetry 98 07/23/24 07:48 Pain Level 10 07/23/24 08:47 Lab/Test Results Lab/Test Results: 07/23/24 07:35 Urine - Reflex from Ua Urine Culture - Pending Laboratory Tests Range/Units 07/23/24 07:35 Urine Color (Yellow) [place] Urine Clarity (Clear) Sl Cloudy Urine pH (5-8) Ur Specific [place] (1.005-1.025) 1.006 Urine Protein (Neg-Trace) mg/dL Color Interference Urine Ketones (Negative) mg/dL Color Interference Urine Blood (Negative) Color Interference Urine Nitrite (Negative) Color Interference Urine Bilirubin (Negative) Color Interference Urine Urobilinogen (Up to 0.2) mg/dL Color Interference Ur Leukocyte Esterase (Negative) Color Interference Urine RBC (0-2) HPF >50 H Urine WBC (0-5) HPF 10-20 H Ur Epithelial Cells (Negative) HPF Rare Urine Crystals (Negative) HPF Negative Urine Bacteria (Negative) HPF Few Urine Casts (Negative) LPF Negative Urine Mucus (Negative) Negative Ur Culture Indicated? Yes Urine Glucose (Negative) mg/dL Color Interference POC- Test(urine) Negative Medical Decision Making ASSESSMENT AND PLAN Initial Assessment: Miss Balderrama is a 58-year-old female presenting with urinary symptoms including pressure, pain, burning while voiding, small blood clots in urine, and associated right lower back pain, not relieved by [id number] Azo. Differential Diagnosis: - UTI: Symptoms include pressure, pain, dysuria, hematuria with clots, right lower back pain. Urinalysis shows >50 RBCs, 10-20 WBCs. Urine culture pending. Plan to initiate cefpodoxime 200 mg BID for 14 days. - Pyelonephritis: History of kidney stones and current symptoms raise concern. CT abdomen/pelvis shows no acute urinary tract calculi, hydronephrosis, hydroureter, appendicitis, or acute diverticulitis. Incidental mild fusiform dilatation of infrarenal abdominal aorta, maximal diameter 2.7 cm. ED Course: - Vital signs reviewed: hypertensive 171/86, heart rate 81, respiratory rate 22, temperature 36.9, saturating 98% on room air. - Physical exam: Patient visibly uncomfortable standing upright. No rash or swelling noted on back. No pain on flank tapping or abdominal palpation. - CT abdomen/pelvis interpreted by radiology: No evidence of acute urinary tract calculi, hydronephrosis, hydroureter, appendicitis, or acute diverticulitis. Incidental finding of mild fusiform dilatation of infrarenal abdominal aorta, maximal diameter 2.7 cm. - Labs reviewed: Urinalysis concerning for >50 RBCs and 10-20 WBCs. Urine culture sent and pending. - Offered Toradol injection for pain relief, effective for kidney stones and inflammation. - Results were reviewed with the patient. Discussed antibiotics with the patient. Patient notes significant allergies and adverse effects to antibiotics in the past. Patient notes she has tolerated ciprofloxacin. She does not believe she has tolerated Keflex or levofloxacin but is unsure. She will attempt to obtain outside hospital records from [place] should antibiotic need to be adjusted. Plan to initiate treatment with ciprofloxacin given prior tolerance. Final Assessment: Patient presents with symptoms suggestive of UTI and pyelonephritis. CT scan and urinalysis results reviewed. Initiated treatment with cefpodoxime and provided pain management. Clinical Impression: - Suspected UTI - Pyelonephritis - Pain management Disposition: - Discharge: Patient to be discharged with prescription for ciprofloxacin 500 twice daily for 7 days. - Follow-Up: Urine culture results pending. Patient advised to follow up with primary care for further evaluation and management. MDM Components Evaluation: - Number of Differential Diagnoses or Management Options: UTI, Pyelonephritis - Amount and Complexity of Data Reviewed: Vital signs, physical exam, CT abdomen/pelvis, urinalysis, urine culture - Risk of Complication and Morbidity or Mortality: Moderate risk due to history of kidney stones and current symptoms, potential for pyelonephritis. This document was written with the assistance of CHARLES Calle. The patient consented to its use. Lab Data Lab results reviewed: Yes I reviewed the patient's lab results. Labs: 07/23/24 07:35 Urine - Reflex from Ua Urine Culture - Pending Laboratory Tests Range/Units 07/23/24 07:35 Urine Color (Yellow) [place] Urine Clarity (Clear) Sl Cloudy Urine pH (5-8) Ur Specific [place] (1.005-1.025) 1.006 Urine Protein (Neg-Trace) mg/dL Color Interference Urine Ketones (Negative) mg/dL Color Interference Urine Blood (Negative) Color Interference Urine Nitrite (Negative) Color Interference Urine Bilirubin (Negative) Color Interference Urine Urobilinogen (Up to 0.2) mg/dL Color Interference Ur Leukocyte Esterase (Negative) Color Interference Urine RBC (0-2) HPF >50 H Urine WBC (0-5) HPF 10-20 H Ur Epithelial Cells (Negative) HPF Rare Urine Crystals (Negative) HPF Negative Urine Bacteria (Negative) HPF Few Urine Casts (Negative) LPF Negative Urine Mucus (Negative) Negative Ur Culture Indicated? Yes Urine Glucose (Negative) mg/dL Color Interference Quality:SDOH Health Related Social Needs: Health related social needs food insecurity (Z59.41), material hardship(utilities) (Z59.12), transportation insecurity (Z59.82), problems related to housing/economic circumstances (Z59.89) PFSH All Active Problems (Updated 07/23/24 @ 10:27 by Tray Carmona MD) Elevated blood pressure reading (Acute) UTI (urinary tract infection) (Acute) Social History Smoking/Tobacco Use Status: Former Tobacco Use Quit Date: 10/31/19 Smoking risk assessment performed?: Yes Alcohol Intake: current Alcohol Intake frequency: holidays/special occasions only Alcohol type: wine Drug use: Current Sobriety Substance use type: marijuana Housing: apartment Do you feel safe at home: Yes Do you feel safe in your relationship?: Yes
[2024-07-23 10:25] VITALS: BP 161/87; PULSE 78; TEMP 36.6; O2SAT 98
[2024-07-23] MEDS: Ciprofloxacin 500 MG TAB PO (10:31)
== END 2024-07-23 15:28 | disposition home or self-care (01) ==
PROVIDERS: Emergency Provider Student in an Organized Health Care Education/Training Program
DX: N39.0 Urinary tract infection, site not specified (principal); R03.0 Elevated blood-pressure reading, without diagnosis of hypertension; Z87.891 Personal history of nicotine dependence
CPT/HCPCS: 81025; 96372; 99284; 74176; 81003; 81015; 87086; J1885

== ENCOUNTER 2024-10-08 09:31 | Emergency (ER) | payer SELFPAY ==
[2024-10-08 09:49] VITALS: BP 162/80; PULSE 76; RESP 18; TEMP 36.6; O2SAT 98
[2024-10-08 10:11] LABS: Clarity Sl Cloudy (Clear)
--- NOTE | 2024-10-08 10:11 | ED.GENADUL_ITS ---
Discharge Plan Disposition Patient Disposition: Home Condition: Stable Discharge Details Clinical Impression: Dysuria Primary Care Provider: None,None ED Provider: Mitchell Pepper Home Meds and New Rx's Prescriptions: New ciprofloxacin HCl [Cipro] 500 mg tablet 500 mg PO BID 7 Days Qty: 14 0RF No Action cyclobenzaprine 10 mg tablet 10 mg PO HS ondansetron 4 mg tablet,disintegrating 4 mg PO BID PRN Patient Comments: DISSOLVE ONE TABLET ON THE TONGUE TWICE A DAY NEEDED FOR 30 DAYS Discharge Instructions Instructions: Dysuria (ED) Additional Instructions: Unfortunately your urinalysis is unable to accurately be tested given your use of AZO. Given your history of frequent and recurrent UTIs, I do believe is reasonable to treat you with Cipro empirically. As we discussed you need to monitor your symptoms closely and return immediately for new, worsening, or evolving symptoms. Otherwise I am giving you a referral to our urology group, Dr. Heck. I do believe it is imperative for you to follow-up with urology given your recurrent UTIs, reactions to multiple antibiotics limiting treatment choices, prior renal stones requiring surgical intervention. Stand Alone Forms: Work Release Referrals: Rony Heck MD [ [facility] STAFF PHYSICIAN, Urology] [facility] General Mode of arrival: ambulatory . Date/Time Provider Initiated Documentation: 10/08/24 09:55 . Limitations to Documentation: no limitations . Information obtained by: patient . History of Present Illness 59 year old F presents to the emergency department with the chief complaint of UTI, described as mild, with intensity rated at 3. Quality is described as aching and dull, and is localized to the abdomen (Lower). Patient reports no radiation. Patient started experiencing this day(s) (2) and it has been constant. No relieving factors improve symptom(s), No exacerbating factors reported . Patient notes other (Dull lower right back pain); denies fever/chills and nausea/vomiting. Patient did receive the following treatments prior to arrival, other (Azo) Related Data Home Medications ?Medication ?Instructions ?Recorded ?Confirmed cyclobenzaprine 10 mg tablet 10 mg PO HS 05/20/2409/26 ciprofloxacin HCl 500 mg tablet 500 mg PO BID 7 days # 14 tabs 10/08/24 (Cipro) ondansetron 4 mg disintegrating 4 mg PO BID PRN 10/08/24 tablet Previous Rx's ?Medication ?Instructions ?Recorded ciprofloxacin HCl 500 mg tablet 500 mg PO BID 7 days # 14 tabs 10/08/24 (Cipro) Allergies Allergy/AdvReac Type Severity Reaction Status Date / Time Sulfa (Sulfonamide Allergy Intermediate Other (See Verified 10/08/24 09:52 Antibiotics) Comment) sulfamethoxazole (From AdvReac Other (See Verified 10/08/24 09:52 Bactrim) Comment) trimethoprim (From Bactrim) AdvReac Other (See Verified 10/08/24 09:52 Comment) General Stated Complaint: Urinary RADHA: 4 Review of Systems Constitutional Constitutional: Denies fever(s) Gastrointestinal Gastrointestinal: Denies abdominal pain, Denies nausea and Denies vomiting Genitourinary Genitourinary: Denies hematuria, Reports dysuria and Denies vaginal discharge Musculoskeletal Musculoskeletal: Reports back pain Integumentary/Breasts Skin/Breast: Denies rash Exam Const General: cooperative, healthy appearing, comfortable and no acute distress Orientation: alert and awake HENPA Head: normal to inspection, normocephalic and atraumatic Mouth: moist mucous membranes Eyes Conjunctivae: conjunctivae normal Neck Neck: normal visual inspection, full ROM, trachea midline and supple Resp Effort & Inspection: normal respiratory effort and able to speak in complete sentences Auscultation: clear to auscultation bilaterally Cardio Rate: regular rate Rhythm: regular rhythm GI Palpation: soft, not firm, no guarding, not rigid and nontender Auscultation: normal bowel sounds Back/Spine/Pelvis Back: no CVA tenderness and No back tenderness Skin General skin exam: no rashes or lesions noted Neuro General: patient alert, patient awake, moves all extremities and no focal motor deficits Cognition: normal cognition Speech: speech normal Gait: normal gait Psych Appearance: grossly normal Mental Status: mental status grossly normal Course Vital Signs Vital signs: Vital Signs Temperature 36.6 C 10/08/24 09:49 Pulse 76 10/08/24 09:49 Respiratory Rate 18 10/08/24 09:49 Blood Pressure 162/80 H 10/08/24 09:49 Pulse Oximetry 98 10/08/24 09:49 Temperature 36.6 C 10/08/24 09:49 Temperature Source Oral 10/08/24 09:49 Pulse 76 10/08/24 09:49 Respiratory Rate 18 10/08/24 09:49 Blood Pressure 162/80 H 10/08/24 09:49 Blood Pressure Position Sitting 10/08/24 09:49 Pulse Oximetry 98 10/08/24 09:49 Oxygen Delivery Method Room Air 10/08/24 09:49 Oxygen Flow Rate 0 10/08/24 09:49 Pain Level 4 10/08/24 09:49 Medical Decision Making This is a 59-year-old female with history of chronic recurrent UTIs, prior renal stones resulting in surgical intervention, MS, multiple allergies or sensitivities to antibiotics, currently does not have any medical insurance having recently relocated from [place]. She is concerned about the medi karime expenses today. She would like to follow-up with urology but states that she and her make too much to have any medical assistance. Typically Cipro treats her symptoms well. She did take Azo prior to arrival. Clinically she appears well, nontoxic, afebrile, no abdominal pain, no vomiting, no CVA tenderness. Extremely low suspicion for pyelonephritis, renal stone, sepsis, etc. Likely uncomplicated UTI. Discussed options and treatment plan with the patient. Again her concern is for expensive medical bills. Agreeable to UTI. At this time likely medication for emergent upper [place] values. Urinalysis shows interference with the Azo, unfortunately this is not a viable test. Discussed this in length with the patient. She states this feels very similar to previous recurrent UTIs. Believe empiric treatment with Cipro is reasonable although we discussed the importance of monitoring her symptoms very closely and returning immediately for new, worsening, or evolving symptoms. We also discussed the importance of outpatient urology follow-up given her history. Patient placed on the urology list and referral sent. Discussed contacting their office personally and discussing financial assistance or payment plan. All questions were answered. Agree and understand treatment plan. Will call if any changes or concerns. Medical Records Medical records reviewed: Yes I reviewed the patient's medical records. Lab Data Lab results reviewed: Yes I reviewed the patient's lab results. Labs: Laboratory Tests Range/Units 10/08/24 10:00 Urine Color (Yellow) [place] Urine Clarity (Clear) Sl Cloudy Urine pH (5-8) Ur Specific [place] (1.005-1.025) >= 1.030 H Urine Protein (Neg-Trace) mg/dL Urine Ketones (Negative) mg/dL Urine Blood (Negative) Urine Nitrite (Negative) Urine Bilirubin (Negative) Urine Urobilinogen (Up to 0.2) mg/dL Ur Leukocyte Esterase (Negative) Urine RBC (0-2) HPF 0-2 Urine WBC (0-5) HPF 3-5 Ur Epithelial Cells (Negative) HPF Rare Urine Crystals (Negative) HPF Negative Urine Bacteria (Negative) HPF Rare Urine Casts (Negative) LPF Negative Urine Mucus (Negative) Negative Ur Culture Indicated? No Urine Glucose (Negative) mg/dL Quality:SDOH Health Related Social Needs: Health related social needs food insecurity transpo in security material hardship house/econ circumstance PFSH All Active Problems Dysuria (Acute) Social History Smoking/Tobacco Use Status: Former Tobacco Use Quit Date: 10/31/19 Smoking risk assessment performed?: Yes Alcohol Intake: current Alcohol Intake frequency: holidays/special occasions only Alcohol type: wine Drug use: Current Sobriety Substance use type: marijuana Housing: apartment Do you feel safe at home: Yes Do you feel safe in your relationship?: Yes
[2024-10-08 10:17] LABS: Specific Gravity >= 1.030 (1.005-1.025)
[2024-10-08 10:19] LABS: Bacteria Rare HPF (Negative); C & S Indicated? No; Casts Negative LPF (Negative); Crystals Negative HPF (Negative); Epithelial Cells Rare HPF (Negative); Mucus Negative (Negative); RBC 0-2 HPF (0-2)
== END 2024-10-08 10:47 | disposition home or self-care (01) ==
PROVIDERS: Student in an Organized Health Care Education/Training Program; Emergency Provider Physician Assistant
DX: R30.0 Dysuria (principal); G35 Multiple sclerosis; Z87.891 Personal history of nicotine dependence
CPT/HCPCS: 99283; 81003; 81015

== ENCOUNTER 2024-10-26 16:12 | Emergency (ER) | payer SELFPAY ==
[2024-10-26 16:24] VITALS: BP 128/77; PULSE 92; RESP 18; TEMP 36.9; O2SAT 98
[2024-10-26 16:50] LABS: Glucose 100 mg/dL (Negative)
[2024-10-26 17:41] VITALS: BP 128/77; PULSE 92; RESP 18; TEMP 36.9; O2SAT 98
--- NOTE | 2024-10-26 21:15 | W.ED.GENAD ---
Discharge Plan Disposition Patient Disposition: Home Discharge Details Clinical Impression: Dysuria, OAB (overactive bladder), Pelvic floor dysfunction in female, Sacro-iliac pain Primary Care Provider: None,None ED Provider: Jhonny Camejo Home Meds and New Rx's Prescriptions: No Action cyclobenzaprine 10 mg tablet 10 mg PO HS ondansetron 4 mg tablet,disintegrating 4 mg PO BID PRN Patient Comments: DISSOLVE ONE TABLET ON THE TONGUE TWICE A DAY NEEDED FOR 30 DAYS Discharge Instructions Instructions: Bladder Retraining Additional Instructions: take motrin or tylenol as needed for pain look up pelvic floor exercises on the internet to see if that might help symptoms HPI General Date/Time Provider Initiated Documentation: 10/26/24 16:44. Limitations to Documentation: no limitations. Information obtained by: patient. HPI Narrative: 59-year-old female with past medical history of overactive bladder syndrome presents for evaluation of persistent discomfort while urinating. She reports that she feels a fair amount of pressure in her bladder urgency and frequency. She has not been taking any additional Pyridium. She reports that she was seen in the emergency department recently and was prescribed antibiotics to take. She states that she completed the course of antibiotics but is not feeling much better. She is also endorsing some right lower back pain in her hip, this is not flank pain or consistent with prior kidney stone that she has had. Related Data Home Medications ?Medication ?Instructions ?Recorded ?Confirmed cyclobenzaprine 10 mg tablet 10 mg PO HS 05/20/24 10/26/24 ondansetron 4 mg disintegrating 4 mg PO BID PRN 10/08/24 10/26/24 tablet Allergies Allergy/AdvReac Type Severity Reaction Status Date / Time Sulfa (Sulfonamide Allergy Intermediate Other (See Verified 10/26/24 16:31 Antibiotics) Comment) sulfamethoxazole (From AdvReac Other (See Verified 10/26/24 16:31 Bactrim) Comment) trimethoprim (From Bactrim) AdvReac Other (See Verified 10/26/24 16:31 Comment) General Stated Complaint: Urinary RADHA: 3 Exam Narrative Exam Narrative: Review of Systems: All systems reviewed & are unremarkable except as noted in HPI and below Well-developed, no acute distress NCAT PERRL, normal conjunctiva RRR Unlabored respiratory effort Nondistended abdomen soft nontender No CVA tenderness Right-sided sacroiliac tenderness Course Vital Signs Vital signs: Vital Signs Temperature 36.9 C 10/26/24 16:24 Pulse 92 H 10/26/24 16:24 Respiratory Rate 18 10/26/24 16:24 Blood Pressure 128/77 10/26/24 16:24 Pulse Oximetry 98 10/26/24 16:24 Temperature 36.9 C 10/26/24 17:41 Temperature Source Oral 10/26/24 17:41 Pulse 92 H 10/26/24 17:41 Respiratory Rate 18 10/26/24 17:41 Blood Pressure 128/77 10/26/24 17:41 Pulse Oximetry 98 10/26/24 17:41 Oxygen Delivery Method Room Air 10/26/24 17:41 Oxygen Flow Rate 0 10/26/24 17:41 Pain Level 4 10/26/24 17:41 Lab/Test Results Lab/Test Results: Laboratory Tests Range/Units 10/26/24 16:35 Urine Color (Yellow) Yellow Urine Clarity (Clear) Clear Urine pH (5-8) 6.0 Ur Specific [place] (1.005-1.025) >= 1.030 H Urine Protein (Neg-Trace) mg/dL Negative Urine Ketones (Negative) mg/dL Negative Urine Blood (Negative) Negative Urine Nitrite (Negative) Negative Urine Bilirubin (Negative) Negative Urine Urobilinogen (Up to 0.2) mg/dL 0.2 Ur Leukocyte Esterase (Negative) Negative Urine Glucose (Negative) mg/dL 100 H Medical Decision Making Emergent evaluation of urinary symptoms. I reviewed the patient's last emergency department visit and urinalysis at that time. A culture was not sent. She was treated with Cipro. She is still having continuing symptoms, her urinalysis does not demonstrate any signs of infection. I suspect that the symptoms are likely more secondary to her overactive bladder syndrome or pelvic floor dysfunction. She reports prior diagnosis of OAB as well as bladder and vaginal prolapse by prior urologist in [place], but she has not been able to have any follow-up here because she does not have any insurance. She is not having any fever or symptoms concerning for an overwhelming infection. I suspect that her right lower back pain is some sacroiliac dysfunction. I recommend pelvic floor exercises, Motrin and Tylenol for pain and continue follow-up with PCP until she is able to get insurance to be able to have specialist care. Quality:SDOH Health Related Social Needs: Health related social needs food insecurity transpo insecurity material hardship house/econ circumstance PFSH All Active Problems (Updated 10/26/24 @ 17:38 by Jhonny Camejo MD) Sacro-iliac pain (Acute) Pelvic floor dysfunction in female (Acute) OAB (overactive bladder) (Acute) Dysuria (Acute) Social History Smoking/Tobacco Use Status: Former Tobacco Use Quit Date: 10/31/19 Smoking risk assessment performed?: Yes Alcohol Intake: current Alcohol Intake frequency: holidays/special occasions only Alcohol type: wine Drug use: Current Sobriety Substance use type: marijuana Housing: apartment Do you feel safe at home: Yes Do you feel safe in your relationship?: Yes
== END 2024-10-26 17:41 | disposition home or self-care (01) ==
PROVIDERS: Emergency Provider Emergency Medicine
DX: N32.81 Overactive bladder; M62.89 Other specified disorders of muscle; M53.3 Sacrococcygeal disorders, not elsewhere classified; R30.0 Dysuria; Z59.41 Food insecurity; Z59.87 Material hardship due to limited financial resources, not elsewhere classified; Z59.82 Transportation insecurity
CPT/HCPCS: 99283; 99282; 81003

== ENCOUNTER 2024-11-12 13:32 | Emergency (ER) | payer SELFPAY ==
[2024-11-12 13:39] VITALS: BP 148/92; PULSE 95; RESP 14; TEMP 36.6; O2SAT 95
--- NOTE | 2024-11-12 14:15 | DI.RAD_ITS ---
Exam(s) XR FOOT LT COMPLETE EXAM: XR FOOT LT COMPLETE CLINICAL HISTORY: pain dorsal mid foot. TECHNIQUE: 2D digital imaging was performed of the left foot. Three images were obtained. AP, oblique and lateral views were obtained. COMPARISON: No exams were available for comparison FINDINGS: BONES: There is an acute nondisplaced fracture of the distal diaphysis of the 3rd metatarsal. No bony destructive lesion is seen. There is an enthesophyte at the posterior calcaneus. There is a small plantar calcaneal spur. JOINTS: No dislocation present. SOFT TISSUE: Normal. IMPRESSION: Nondisplaced fracture of the 3rd metatarsal. DATA REPOSITORY: RADIATION DOSE DELIVERED:
[2024-11-12] MEDS: Ibuprofen 600 MG TAB PO (14:43)
[2024-11-12] MEDS: Acetaminophen 325 MG TAB 650 MG PO (14:44)
--- NOTE | 2024-11-12 14:44 | W.ED.GENAD ---
Discharge Plan Disposition Patient Disposition: Home Discharge Details Clinical Impression: Closed fracture of third metatarsal bone Primary Care Provider: None,None ED Provider: Tray Carmona Home Meds and New Rx's Prescriptions: Continued cyclobenzaprine 10 mg tablet 10 mg PO HS ondansetron 4 mg tablet,disintegrating 4 mg PO BID PRN Patient Comments: DISSOLVE ONE TABLET ON THE TONGUE TWICE A DAY NEEDED FOR 30 DAYS Discharge Instructions Instructions: Foot Fracture ED Additional Instructions: Use supportive orthopedic shoe as a splint. Use crutches. Toe-touch weightbearing over the next 2 weeks. Rest your foot over the next 2-3 weeks. Try to keep it elevated as much as possible. Please take ibuprofen 600 mg by mouth every 6-8 hours as needed for pain for the next few days. You may wish to use Voltaren gel instead of ibuprofen. Dose according to label. Please take tylenol (acetaminophen) 650 mg every 6 hours as needed for pain. Be sure to avoid any other medications that containe tylenol (acetaminophen). Please follow-up with podiatry. Return to the emergency department immediately for any worsening or new concerning symptoms. Stand Alone Forms: Work Release Referrals: Flakita Guthrie DPM [[facility] STAFF PHYSICIAN, Podiatry] Discharge Data Discharge Date/Time-TO BE ENTERED AT DEPARTURE: 11/12/24 15:37 HPI General Mode of arrival: ambulatory. Date/Time Provider Initiated Documentation: 11/12/24 14:08. Limitations to Documentation: no limitations. Information obtained by: patient. HPI Narrative: HISTORY OF PRESENT ILLNESS 59-year-old female with MS presenting with foot pain for 4 days, progressively worsening. Pain is throbbing, excruciating, localized on the dorsal aspect and arch of the foot, constant, and worsens with activity. Temporary relief with Tylenol, elevation, and rest. No significant joint pain, diabetes, alcohol use, or recent medication. Quit smoking 6 years ago. Similar episode of tendinitis in right arm previously. Related Data Home Medications ?Medication ?Instructions ?Recorded ?Confirmed cyclobenzaprine 10 mg tablet 10 mg PO HS 05/20/24 11/12/24 ondansetron 4 mg disintegrating 4 mg PO BID PRN 10/08/24 11/12/24 tablet Allergies Allergy/AdvReac Type Severity Reaction Status Date / Time Sulfa (Sulfonamide Allergy Intermediate Other (See Verified 11/12/24 13:43 Antibiotics) Comment) sulfamethoxazole (From AdvReac Other (See Verified 11/12/24 13:43 Bactrim) Comment) trimethoprim (From Bactrim) AdvReac Other (See Verified 11/12/24 13:43 Comment) General Stated Complaint: Orthopedic RADHA: 3 Review of Systems All systems reviewed & are unremarkable except as noted in HPI and below Constitutional Constitutional: Denies fever(s) Musculoskeletal Musculoskeletal: Reports as per HPI Exam Extrem Left lower extremity: foot Details: normal capillary refill, tenderness (3rd MT) Location: of the dorsal foot, no edema, vascular exam Details: dorsalis pedis pulse present, tendon exam Details: active flexion abnormal (dorsiflex 3rd toe) and motor-sensory exam Details: light-touch normal Course Vital Signs Vital signs: Vital Signs Temperature 36.6 C 11/12/24 13:39 Pulse 95 H 11/12/24 13:39 Respiratory Rate 14 11/12/24 13:39 Blood Pressure 148/92 H 11/12/24 13:39 Pulse Oximetry 95 11/12/24 13:39 Temperature 36.6 C 11/12/24 13:39 Temperature Source Tympanic 11/12/24 13:39 Pulse 95 H 11/12/24 13:39 Respiratory Rate 14 11/12/24 13:39 Blood Pressure 148/92 H 11/12/24 13:39 Blood Pressure Position Sitting 11/12/24 13:39 Pulse Oximetry 95 11/12/24 13:39 Oxygen Delivery Method Room Air 11/12/24 13:39 Oxygen Flow Rate 0 11/12/24 13:39 Pain Level 6 11/12/24 13:39 Comment Pain w/ walking is 10/10 11/12/24 13:39 Medical Decision Making ASSESSMENT AND PLAN Initial Assessment: 59-year-old female with a 4-day history of excruciating foot pain, throbbing in the dorsal foot and arch. Differential Diagnosis: - Tendinitis: Pain localized to the third flexor tendon. Plan includes rest, elevation, crutches, orthopedic shoe, and topical NSAID. - Fracture: Possible midfoot fracture. Plan includes X-ray to rule out fractures. ED Course: - Foot palpation and dorsiflexion assessment performed. - X-ray ordered to evaluate for fractures. - Tylenol and ibuprofen administered with crackers. - xray of the left foot was initially viewed and interpreted as negative. Suspect sprain versus fracture not apparent on x-ray. Recommended orthopedic boot and crutches and patient provided informed refusal. Patient initially discharged with plan for outpatient follow-up. - X-ray over read by radiology as fracture nondisplaced distal third metatarsal. Patient contacted and will return to the Emergency Department -she is now agreeable to orthopedic boot and crutches. Final Assessment: Foot pain evaluated with physical exam and X-ray. Third MT fx on xray. Treatment initiated with pain management, rest, and supportive measures. Clinical Impression: - Third metatarsal fracture Disposition: - Follow-Up: Crutches, orthopedic shoe, and topical NSAID recommended. Patient Education: Rest, elevation, pain management, use of crutches, and orthopedic shoe discussed. This document was written with the assistance of CHARLES Calle. The patient consented to its use. Quality:SDOH Health Related Social Needs: Health related social needs food insecurity transpo insecurity material hardship house/econ circumstance PFSH All Active Problems (Updated 11/12/24 @ 16:15 by Tray Carmona MD) Closed fracture of third metatarsal bone (Acute) Sacro-iliac pain (Acute) Pelvic floor dysfunction in female (Acute) OAB (overactive bladder) (Acute) Social History Smoking/Tobacco Use Status: Former Tobacco Use Quit Date: 10/31/19 Smoking risk assessment performed?: Yes Alcohol Intake: current Alcohol Intake frequency: holidays/special occasions only Alcohol type: wine Drug use: Current Sobriety Substance use type: marijuana Housing: apartment Do you feel safe at home: Yes Do you feel safe in your relationship?: Yes
[2024-11-12 15:34] VITALS: BP 132/70; PULSE 82; RESP 16; O2SAT 96
== END 2024-11-12 15:37 | disposition home or self-care (01) ==
PROVIDERS: Emergency Provider Student in an Organized Health Care Education/Training Program
DX: S92.335A Nondisplaced fracture of third metatarsal bone, left foot, initial encounter for closed fracture (principal); X58.XXXA Exposure to other specified factors, initial encounter; Z87.891 Personal history of nicotine dependence
CPT/HCPCS: 99283; 73630

== ENCOUNTER 2025-02-02 09:28 | Emergency (ER) | payer SELFPAY ==
[2025-02-02 09:39] VITALS: BP 127/77; PULSE 88; RESP 12; TEMP 36.5; O2SAT 97
[2025-02-02 09:56] LABS: C & S Indicated? No; Glucose Color Interference mg/dL (Negative); RBC 20-50 HPF (0-2)
--- NOTE | 2025-02-02 10:00 | DI.CT_ITS ---
Exam(s) CT ABDOMEN PELVIS WO EXAM: CT ABDOMEN PELVIS WO CLINICAL HISTORY: Hematuria/UTI, rule out stone. TECHNIQUE: Imaging Protocol: Axial computed tomography images with coronal and sagittal reformatted images were created and reviewed CONTRAST MATERIAL: Intravenous: none Oral: None COMPARISON: CT CT RENAL COLIC WO from 07/23/2024 FINDINGS: VISUALIZED LUNG BASES: No nodules nor pleural effusions evident. ABDOMEN: There is no ascites. LIVER: Liver is hypodense implying steatosis. This has further progressed when compared to the prior CT scan of 07/23/2024. There are no discrete focal hepatic lesions evident. No dilated intrahepatic ducts. GALLBLADDER/BILIARY: Gallbladder is again noted be surgically absent. CBD is not dilated. PANCREAS: No evidence of pancreatic mass nor dilatation of the pancreatic duct. SPLEEN: Spleen is not enlarged. No obvious intrasplenic lesions. ADRENALS: There are no significant adrenal masses. KIDNEYS:Kidneys both exhibit normal size. No cysts nor obvious solid lesions evident on this non few study. There is a single punctate 1 mm calcific density in the left renal hilum region. This may represent a tiny nonobstructive calculus at this level (series 7/image 40). There are no other focal kidney findings. No hydronephrosis.. ABDOMINAL AORTA: Abdominal aorta is calcified. There is mild fusiform dilatation of the infrarenal abdominal aorta with maximum diameter of 2.7 cm. The diameter of the aorta above this level is 2 cm. There is no aneurysmal dilatation of the iliac arteries. LYMPH NODES: There is no retroperitoneal nor paraaortic adenopathy. ABDOMINAL WALL: No evidence of significant anterior abdominal wall nor inguinal hernia. GI: There is no evidence of bowel obstruction, free air, nor abscess. PELVIS: LYMPH NODES: There is no intrapelvic nor inguinal adenopathy. GI: No evidence of appendicitis.No evidence of sigmoid diverticulitis. URINARY BLADDER: No calculi nor obvious masses evident REPRODUCTIVE: Uterus and adnexal regions unremarkable. No free fluid in the pelvis. OSSEOUS: No significant osseous lesions. No fractures. Moderate disc height loss at L3-4 level. No listhesis. IMPRESSION: 1. There is a solitary tiny 1 millimeter punctate nonobstructive probable calculus in the left kidney. No other renal findings evident on this non few study. 2. No radiopaque calculi seen in the nondistended urinary bladder. 3. Hepatic steatosis which has further progressed when compared to 07/23/2024 Mild fusiform infrarenal. The diameter abdominal aortic aneurysm with diameter measurement 2.7 cm. The diameter of the abdominal aorta above this level is 2 cm. There is no aneurysm of the iliac arteries. Findings called by myself to ER physician 02/02/2025 at 10:30 a.m. RADIATION DOSE DELIVERED: 692.54mGy.cm Total DLP DATA REPOSITORY: All CT scans at this facility are submitted to the National Radiology Data Registry (NRDR) Dose Index Registry (DIR) with the [employer] (ACR). RADIATION OPTIMIZATION: All CT scans at this facility use at least one of these dose optimization techniques: automated exposure control; mA and/or kV adjustment per patient size (includes targeted exams where dose is matched to clinical indication); or iterative reconstruction.
--- NOTE | 2025-02-02 10:19 | ED.GENADUL_ITS ---
Discharge Plan Disposition Patient Disposition: Home Condition: Good Discharge Details Clinical Impression: UTI (urinary tract infection) Primary Care Provider: None,None ED Provider: Corey Fox Home Meds and New Rx's Prescriptions: New estradiol [Estrace] 0.01 % (0.1 mg/gram) cream 1 appful vaginal DAILY Qty: 42.5 0RF Rx Instructions: Apply 1 g daily for 2 weeks and then 1 g 2 times per week ciprofloxacin HCl [Cipro] 500 mg tablet 500 mg PO BID Qty: 14 0RF No Action cyclobenzaprine 10 mg tablet 10 mg PO HS ondansetron 4 mg tablet,disintegrating 4 mg PO BID PRN Patient Comments: DISSOLVE ONE TABLET ON THE TONGUE TWICE A DAY NEEDED FOR 30 DAYS Discharge Instructions Instructions: Ciprofloxacin (Systemic), Estradiol (Topical), Urinary Tract Infection, Adult ED Additional Instructions: At this time you have evidence of a mild urinary tract infection. Please take the antibiotic as prescribed. As we discussed together once you reached postmenopausal age, the likelihood of recurrent urinary tract infections increases secondary to the change in normal pelvic bacteria. Please review the prescribed drug information, and after doing your own personal research to a point that you feel comfortable, please feel free to use the estradiol vaginal cream regularly to help supplement natural justina of your pelvic area. As Cipro has been helpful for you in the past, we will utilize Cipro for the suspected UTI today. One of the side effects of Cipro is that it can cause tendon irritation and in the worst case scenario rupture. Please monitor yourself closely, if you do notice any pain or discomfort in your tendons or ligaments please stop taking the antibiotic and follow-up with your PCP immediately. Please avoid any high impact or high tension sports in the meantime. If you notice any worsening of your symptoms, or any new symptoms such as vomiting, diarrhea, fever, chills, shortness of breath, chest pain, numbness, weakness, or fainting , please return immediately to the emergency department for reevaluation. Please follow up with your primary care provider as soon as possible for reassessment and reevaluation. As always, it was a pleasure participating in your medical care today. HPI General Date/Time Provider Initiated Documentation: 02/02/25 09:35 . HPI Narrative: This is a pleasant 59-year-old female with a past medical history of MS, kidney stones, overreactive bladder symptoms who has been thoroughly worked up per patient in the past including by her medical. Care provider in [place], resident has a history of chronic urinary tract infection often while treated with Cipro, who presents today for evaluation of dysuria and frequency. Symptoms started yesterday, she had some mild to moderate burning, she took Azo yesterday and again today as her symptoms continued, symptoms did not improve with the azathioprine. She denies associated fever or chills. She does admit to mild nausea. She does admit to suprapubic achiness, but no abdominal or flank discomfort. She denies any other complaints at this time. She states that this feels similar to previous UTIs, and she denies the severe pain associated with her kidney stones. Related Data Home Medications ?Medication ?Instructions ?Recorded ?Confirmed cyclobenzaprine 10 mg tablet 10 mg PO HS 05/20/2412/20 ondansetron 4 mg disintegrating 4 mg PO BID PRN 02/02/25 tablet ciprofloxacin HCl 500 mg tablet 500 mg PO BID #14 tabs 02/02/25 (Cipro) estradiol 0.01% (0.1 mg/gram) 1 appful vaginal DAILY # 42.5 grams 02/02/25 vaginal cream (Estrace) Previous Rx's ?Medication ?Instructions ?Recorded ciprofloxacin HCl 500 mg tablet 500 mg PO BID #14 tabs 02/02/25 (Cipro) estradiol 0.01% (0.1 mg/gram) 1 appful vaginal DAILY # 42.5 grams 02/02/25 vaginal cream (Estrace) Allergies Allergy/AdvReac Type Severity Reaction Status Date / Time Sulfa (Sulfonamide Allergy Intermediate Other (See Verified 02/02/25 09:42 Antibiotics) Comment) sulfamethoxazole (From AdvReac Other (See Verified 02/02/25 09:42 Bactrim) Comment) trimethoprim (From Bactrim) AdvReac Other (See Verified 02/02/25 09:42 Comment) General Stated Complaint: Urinary RADHA: 4 Exam Narrative Exam Narrative: 1.Const: Well-nourished, Well-developed, appearing stated age 2.Eyes: PERRL, no conjunctival injection, and symmetrical lids. 3.ENT: Atraumatic external nose and ears. Moist MM. Neck: Symmetric, trachea midline, No thyromegaly. 4.CVS: +S1/S2, Peripheral pulses 2+ and equal in all extremities. Brisk capillary refill in all extremities. 5.RESP: Unlabored respiratory effort. Clear to auscultation bilaterally. No wheezes rales or rhonchi 6.GI: Soft, Nontender/Nondistended, No hepatosplenomegaly. No guarding or rebound. No flank or CVA tenderness 7.MSK: Normocephalic/Atraumatic, Extremities w/o deformity or ttp No cyanosis or clubbing, Normal movement of all extremities 8.Skin: Warm, Dry. No rashes or lesions. 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 Sensation grossly intact, no focal neurologic deficits. 10.Psych: (AAO) x3. Appropriate mood and affect Course Vital Signs Vital signs: Vital Signs Temperature 36.5 C 02/02/25 09:39 Pulse 88 02/02/25 09:39 Respiratory Rate 12 02/02/25 09:39 Blood Pressure 127/77 02/02/25 09:39 Pulse Oximetry 97 02/02/25 09:39 Temperature 36.5 C 02/02/25 09:39 Temperature Source Temporal Artery Scan 02/02/25 09:39 Pulse 88 02/02/25 09:39 Respiratory Rate 12 02/02/25 09:39 Blood Pressure 127/77 02/02/25 09:39 Blood Pressure Position Sitting 02/02/25 09:39 Pulse Oximetry 97 02/02/25 09:39 Oxygen Delivery Method Room Air 02/02/25 09:39 Oxygen Flow Rate 0 02/02/25 09:39 Lab/Test Results Lab/Test Results: Laboratory Tests Range/Units 02/02/25 09:38 Urine Color (Yellow) Cuming Urine Clarity (Clear) Clear Urine pH (5-8) Ur Specific [place] (1.005-1.025) 1.010 Urine Protein (Neg-Trace) mg/dL Color Interference Urine Ketones (Negative) mg/dL Color Interference Urine Blood (Negative) Color Interference Urine Nitrite (Negative) Color Interference Urine Bilirubin (Negative) Color Interference Urine Urobilinogen (Up to 0.2) mg/dL Color Interference Ur Leukocyte Esterase (Negative) Color Interference Urine RBC (0-2) HPF 20-50 H Urine WBC (0-5) HPF 5-10 Ur Epithelial Cells (Negative) HPF Rare Urine Crystals (Negative) HPF Negative Urine Bacteria (Negative) HPF Rare Urine Casts (Negative) LPF Negative Urine Mucus (Negative) Negative Ur Culture Indicated? No Urine Glucose (Negative) mg/dL Color Interference Medical Decision Making This is a pleasant 59-year-old female with a past medical history of MS, kidney stones, overreactive bladder symptoms who has been thoroughly worked up per patient in the past including by her medical. Care provider in [place], resident has a history of chronic urinary tract infection often while treated with Cipro, who presents today for evaluation of dysuria and frequency. Symptoms started yesterday, she had some mild to moderate burning, she took Azo yesterday and again today as her symptoms continued, symptoms did not improve with the azathioprine. She denies associated fever or chills. She does admit to mild nausea. She does admit to suprapubic achiness, but no abdominal or flank discomfort. She denies any other complaints at this time. She states that this feels similar to previous UTIs, and she denies the severe pain associated with Exam demonstrates a well-appearing female, no abdominal or flank or CVA tenderness. No tachycardia or fever. Differential includes UTI, but does also include UTI with potential urolithiasis or just independent urolithiasis. Urinalysis shows blood, and 5-10 WBCs, rare bacteria, because of the azathioprine leuk esterase and nitrates are not able to be evaluated. With the high amount of RBCs we will get CT scan to rule out urolithiasis. Otherwise suspicion for urinary tract infection is high. Patient is postmenopausal. Opportunity for potential vaginal estrogen to help reduce potential UTI recurrence would be reasonable. We did discuss risks and benefits of this with the patient, and she states that she will continue to perform her own additional research on this topic. She does have a primary care provider but does not regularly see the PCP secondary to insurance issues. I did recommend she discuss this further with her outpatient practitioners if needed. We will prescribe vaginal estrogen due to her age and risk factors and recurrent UTI potential. We did discuss the risks of this, including potential cancer, but more so we also discussed the new literature recommendations from the [employer] 10:[address] scan shows no evidence of acute obstructive kidney stone or other abnormality. Patient's chronic abdominal aortic aneurysm remains small and unchanged. No other acute abnormality otherwise. Patient's pain well- controlled. Out of concern for UTI we will start her on Cipro, we will give prescription for estradiol cream if she feels comfortable. Discussed red flags for which to return. I have extensively reviewed the treatment plan and discharge instructions with the patient. I have addressed all patient concerns at this time. The patient was made aware of what symptoms to monitor for that would warrant a return to the emergency department. Discussed the plan with the patient, they demonstrate verbal understanding and agreement with our assessment and plan at this time. The documentation in this chart was dictated using [employer] dictation software. Please excuse any dictation errors. FINDINGS: VISUALIZED LUNG BASES: No nodules nor pleural effusions evident. ABDOMEN: There is no ascites. LIVER: Liver is hypodense implying steatosis. This has further progressed when compared to the prior CT scan of 07/23/2024. There are no discrete focal hepatic lesions evident. No dilated intrahepatic ducts. GALLBLADDER/BILIARY: Gallbladder is again noted be surgically absent. CBD is not dilated. PANCREAS: No evidence of pancreatic mass nor dilatation of the pancreatic duct. SPLEEN: Spleen is not enlarged. No obvious intrasplenic lesions. ADRENALS: There are no significant adrenal masses. KIDNEYS:Kidneys both exhibit normal size. No cysts nor obvious solid lesions evident on this non few study. There is a single punctate 1 mm calcific density in the left renal hilum region. This may represent a tiny nonobstructive calculus at this level (series 7/image 40). There are no other focal kidney findings. No hydronephrosis.. ABDOMINAL AORTA: Abdominal aorta is calcified. There is mild fusiform dilatation of the infrarenal abdominal aorta with maximum diameter of 2.7 cm. The diameter of the aorta above this level is 2 cm. There is no aneurysmal dilatation of the iliac arteries. LYMPH NODES: There is no retroperitoneal nor paraaortic adenopathy. ABDOMINAL WALL: No evidence of significant anterior abdominal wall nor inguinal hernia. GI: There is no evidence of bowel obstruction, free air, nor abscess. PELVIS: LYMPH NODES: There is no intrapelvic nor inguinal adenopathy. GI: No evidence of appendicitis.No evidence of sigmoid diverticulitis. URINARY BLADDER: No calculi nor obvious masses evident REPRODUCTIVE: Uterus and adnexal regions unremarkable. No free fluid in the pelvis. OSSEOUS: No significant osseous lesions. No fractures. Moderate disc height loss at L3-4 level. No listhesis. IMPRESSION: 1. There is a solitary tiny 1 millimeter punctate nonobstructive probable calculus in the left kidney. No other renal findings evident on this non few study. 2. No radiopaque calculi seen in the nondistended urinary bladder. 3. Hepatic steatosis which has further progressed when compared to 07/23/2024 Mild fusiform infrarenal. The diameter abdominal aortic aneurysm with diameter measurement 2.7 cm. The diameter of the abdominal aorta above this level is 2 cm. There is no aneurysm of the iliac arteries. Findings called by myself to ER physician 02/02/2025 at 10:30 a.m. Quality:SDOH Health Related Social Needs: Health related social needs food insecurity transpo in security material hardship house/econ circumstance PFSH All Active Problems (Updated 02/02/25 @ 10:46 by Corey Fox DO) UTI (urinary tract infection) (Acute) Social History Smoking/Tobacco Use Status: Former Tobacco Use Quit Date: 10/31/19 Smoking risk assessment performed?: Yes Alcohol Intake: current Alcohol Intake frequency: holidays/special occasions only Alcohol type: wine Drug use: Current Sobriety Substance use type: marijuana Housing: apartment Do you feel safe at home: Yes Do you feel safe in your relationship?: Yes
== END 2025-02-02 10:58 | disposition home or self-care (01) ==
PROVIDERS: Registered Nurse Emergency; Emergency Provider Student in an Organized Health Care Education/Training Program
DX: N39.0 Urinary tract infection, site not specified (principal); Z87.442 Personal history of urinary calculi; Z59.41 Food insecurity; Z59.82 Transportation insecurity; Z59.89 Other problems related to housing and economic circumstances; Z59.87 Material hardship due to limited financial resources, not elsewhere classified
CPT/HCPCS: 99283; 99284; 74176; 81003; 81015

== ENCOUNTER 2025-04-03 11:17 | Emergency (ER) | payer SELFPAY ==
[2025-04-03 11:46] VITALS: BP 160/84; PULSE 85; RESP 14; TEMP 36.6; O2SAT 98
--- NOTE | 2025-04-03 12:00 | DI.CT_ITS ---
Exam(s) CT ABDOMEN PELVIS W EXAM: CT ABDOMEN PELVIS W CLINICAL HISTORY: lower abd pain, nausea, diarrhea. TECHNIQUE: Imaging Protocol: Axial computed tomography images with coronal and sagittal reformatted images were created and reviewed CONTRAST MATERIAL: Intravenous: Omnipaque-350 100cc Oral: None COMPARISON: CT CT ABDOMEN PELVIS WO from 02/02/2025 FINDINGS: VISUALIZED LUNG BASES: No nodules nor pleural effusions evident. ABDOMEN: There is no ascites. LIVER: Liver is again noted be hypodense implying steatosis. There no ominous focal hepatic lesions. There is a small benign 1 cm cyst in the medial aspect of the right hepatic lobe. No dilated intrahepatic ducts. GALLBLADDER/BILIARY: The gallbladder is again noted to be surgically absent. CBD is not dilated. PANCREAS: No evidence of pancreatic mass nor dilatation of the pancreatic duct. SPLEEN: Spleen is not enlarged. No obvious intrasplenic lesions. Splenic and portal veins are patent. ADRENALS: There are no significant adrenal masses. KIDNEYS:No cysts evident. No solid renal masses. No calculi nor hydronephrosis.. ABDOMINAL AORTA: The abdominal aorta is calcified and there is a mild fusiform infrarenal abdominal aortic aneurysm which exhibits maximum diameter of 2.5 cm at the level the inferior mesenteric artery, similar to previous. Iliac arteries are calcified but not enlarged. There is no evidence of aortic dissection., LYMPH NODES:There is no retroperitoneal nor paraaortic adenopathy. ABDOMINAL WALL: No evidence of significant anterior abdominal wall nor inguinal hernia. GI: There is no evidence of bowel obstruction, free air, nor abscess. PELVIS: GI: No evidence of appendicitis.There is sigmoid diverticuli but no evidence of acute diverticulitis. LYMPH NODES: There is no intrapelvic nor inguinal adenopathy. REPRODUCTIVE: Uterus size normal. There are no abnormal adnexal masses nor free fluid in the pelvis. URINARY BLADDER: No calculi nor obvious masses evident OSSEOUS: No fractures and no significant osseous lesions. Some disc space narrowing is noted at L3-4 level, similar to previous. Again noted is some sclerosis on the iliac side of both sacroiliac joints. No ankylosis of the SI joints. This finding appears unchanged from January 2025 CT scan IMPRESSION: 1. No acute findings in the abdomen pelvis. 2. Mild fusiform infrarenal abdominal aortic aneurysm again noted with maximum diameter of 2.5 cm, not increased in size. No dissection. No aneurysms evident in the iliac arteries. 3. Hepatic steatosis again noted. 4. No acute urinary tract findings. No hydronephrosis. Preliminary virtual Radiology report was reviewed RADIATION DOSE DELIVERED: 723.7mGy.cm Total DLP DATA REPOSITORY: All CT scans at this facility are submitted to the National Radiology Data Registry (NRDR) Dose Index Registry (DIR) with the [employer] (ACR). RADIATION OPTIMIZATION: All CT scans at this facility use at least one of these dose optimization techniques: automated exposure control; mA and/or kV adjustment per patient size (includes targeted exams where dose is matched to clinical indication); or iterative reconstruction.
[2025-04-03 12:24] LABS: Glucose Negative (Negative)
--- NOTE | 2025-04-03 12:25 | W.ED.GENAD ---
Discharge Plan Disposition Patient Disposition: Home Condition: Good Discharge Details Clinical Impression: Arthralgia of right side of pelvis Primary Care Provider: None,None ED Provider: Gricelda Pedroza Home Meds and New Rx's Prescriptions: No Action cyclobenzaprine 10 mg tablet 10 mg PO HS ondansetron 4 mg tablet,disintegrating 4 mg PO BID PRN Patient Comments: DISSOLVE ONE TABLET ON THE TONGUE TWICE A DAY NEEDED FOR 30 DAYS estradiol [Estrace] 0.01 % (0.1 mg/gram) cream 1 appful vaginal DAILY Qty: 42.5 0RF Rx Instructions: Apply 1 g daily for 2 weeks and then 1 g 2 times per week ciprofloxacin HCl [Cipro] 500 mg tablet 500 mg PO BID Qty: 14 0RF esomeprazole magnesium [Nexium] 20 mg capsule,delayed release(DR/EC) 20 mg PO DAILY Discharge Instructions Instructions: Sacroiliac Joint Pain ED Additional Instructions: Please call your primary care provider to schedule follow-up appointment as soon as possible. Your workup today was reassuring. Symptoms are likely due to SI joint dysfunction. There were no acute abnormalities noted in your abdomen/pelvis or on blood work. There is no sign of urinary tract infection. I recommend that you use Voltaren gel, heat/ice, muscle rubs such as Bengay, and lidocaine patches as needed (do not use heat or ice over lidocaine patches). Return to emergency care if develop new severe back/flank pain, uncontrollable vomiting, difficulty emptying your bladder, numbness in your underwear area, weakness in your legs, or if you are very worried and need to be rechecked again immediately Stand Alone Forms: Portal Information Referrals: [facility] [Outside] HPI General Date/Time Provider Initiated Documentation: 04/03/25 11:54. HPI Narrative: Alisa is a 59-year-old female with history of of chronic UTIs, kidney stones requiring intervention, MS, and arthritis in her lower back who presents to the emergency department today for evaluation of right lower back/buttock pain x 3 weeks. This is described as an aching discomfort that radiates to her lower abdomen. Occasionally accompanied by nausea. Denies fever/chills, vomiting, change in p.o. intake, change in bowel or bladder function, dysuria, hematuria, blood in stools, saddle anesthesia. She is currently in the process of reinstating insurance, has been without a PCP for 1.5 years since moving up here. She was followed closely by urology in [place]. Has a significant history of chronic UTIs, is only able to tolerate Cipro due to multiple drug allergies (is not sure what she is allergic to). Related Data Home Medications ?Medication ?Instructions ?Recorded ?Confirmed cyclobenzaprine 10 mg tablet 10 mg PO HS 05/20/24 04/03/25 ondansetron 4 mg disintegrating 4 mg PO BID PRN 10/08/24 04/03/25 tablet ciprofloxacin HCl 500 mg tablet 500 mg PO BID #14 tabs 02/02/25 04/03/25 (Cipro) estradiol 0.01% (0.1 mg/gram) 1 appful vaginal DAILY #42.5 grams 02/02/25 04/03/25 vaginal cream (Estrace) esomeprazole magnesium 20 mg 20 mg PO DAILY 04/03/25 04/03/25 capsule,delayed release (Nexium) Previous Rx's ?Medication ?Instructions ?Recorded ciprofloxacin HCl 500 mg tablet 500 mg PO BID #14 tabs 02/02/25 (Cipro) estradiol 0.01% (0.1 mg/gram) 1 appful vaginal DAILY #42.5 grams 02/02/25 vaginal cream (Estrace) Allergies Allergy/AdvReac Type Severity Reaction Status Date / Time Sulfa (Sulfonamide Allergy Intermediate Other (See Verified 04/03/25 11:56 Antibiotics) Comment) sulfamethoxazole (From AdvReac Other (See Verified 04/03/25 11:56 Bactrim) Comment) trimethoprim (From Bactrim) AdvReac Other (See Verified 04/03/25 11:56 Comment) General Stated Complaint: Urinary RADHA: 3 Exam Const General: cooperative, healthy appearing, comfortable, no acute distress, well developed and well groomed Nutritional Appearance: average body habitus Orientation: alert and oriented x3 Resp Effort & Inspection: normal respiratory effort and able to speak in complete sentences Auscultation: clear to auscultation bilaterally Cardio Rate: regular rate Rhythm: regular rhythm GI Inspection: normal to inspection Palpation: soft, no masses and nontender Back/Spine/Pelvis Back: no CVA tenderness Thoracic/Lumbar Spine: thoracic and lumbar spine normal to inspection Sacroiliac joints: on the right tender to palpation Neuro General: patient alert, patient oriented x3, gait normal, tone normal and moves all extremities Motor: muscle tone normal throughout and strength 5/5 throughout Sensory Exam: no sensory deficits noted Course Vital Signs Vital signs: Vital Signs Temperature 36.6 C 04/03/25 11:46 Pulse 85 04/03/25 11:46 Respiratory Rate 14 04/03/25 11:46 Blood Pressure 160/84 H 04/03/25 11:46 Pulse Oximetry 98 04/03/25 11:46 Temperature 36.6 C 04/03/25 11:46 Temperature Source Oral 04/03/25 11:46 Pulse 85 04/03/25 11:46 Respiratory Rate 14 04/03/25 11:46 Blood Pressure 160/84 H 04/03/25 11:46 Blood Pressure Position Sitting 04/03/25 11:46 Pulse Oximetry 98 04/03/25 11:46 Oxygen Delivery Method Room Air 04/03/25 11:46 Oxygen Flow Rate 0 04/03/25 11:46 Pain Level 5 04/03/25 11:46 Lab/Test Results Lab/Test Results: Laboratory Tests Range/Units 04/03/25 12:10 Urine Color (Yellow) Yellow Urine Clarity (Clear) Clear Urine pH (5-8) 7.0 Ur Specific Bradner (1.005-1.025) 1.020 Urine Protein (Neg-Trace) mg/dL Negative Urine Ketones (Negative) mg/dL Negative Urine Blood (Negative) Negative Urine Nitrite (Negative) Negative Urine Bilirubin (Negative) Negative Urine Urobilinogen (Up to 0.2) mg/dL 1.0 H Ur Leukocyte Esterase (Negative) Negative Urine Glucose (Negative) mg/dL Negative Medical Decision Making Alisa is a 59-year-old female with history of of chronic UTIs, kidney stones requiring intervention, MS, and arthritis in her lower back who presents to the emergency department today for evaluation of right lower back/buttock pain x 3 weeks. This is described as an aching discomfort that radiates to her lower abdomen. Occasionally accompanied by nausea. Denies fever/chills, vomiting, change in p.o. intake, change in bowel or bladder function, dysuria, hematuria, blood in stools, saddle anesthesia. She is currently in the process of reinstating insurance, has been without a PCP for 1.5 years since moving up here. She was followed closely by urology in [place]. Has a significant history of chronic UTIs, is only able to tolerate Cipro due to multiple drug allergies (is not sure what she is allergic to) Physical exam reassuring. Alisa is alert and oriented, no acute distress. Tenderness to palpation of right SI joint/upper buttock. 5 out of 5 muscle strength of lower extremities. Easy work of breathing, lung sounds clear bilaterally. Normal heart sounds. No CVA tenderness. Abdomen soft, nondistended, nontender to palpation. DDx includes was not limited to: SI dysfunction, UTI, pyelonephritis, kidney stone, diverticulitis. No red flags concerning for dehydration, patient does not meet sepsis criteria. I independently interpreted the following tests: CBC, CMP, UA all unremarkable CT abdomen/pelvis performed. No acute intra-abdominal pathology noted, however sclerotic changes along the inferior aspects of both sacroiliac joints noted. While in the ED, Alisa received Toradol for discomfort and Zofran for nausea. History presentation consistent with SI joint dysfunction. Recommend close follow-up with PCP when patient establishes care in April for further evaluation/management. Reviewed discharge instructions with patient, including red flags indicating need for return to emergency care. Imaging Data Radiologic Study: Radiologist's impression: PROCEDURE INFORMATION: Exam: CT Abdomen And Pelvis With Contrast Exam date and time: 04/03/2025 1:23 PM Age: 59 years old Clinical indication: Other: Lower abd pain, nausea, diarrhea, si joint pain; Right hip pain, , , and si joint pain TECHNIQUE: Imaging protocol: Computed tomography of the abdomen and pelvis with contrast. Contrast material: OMNIPAQUE 350; Contrast volume: 100 ml; Contrast route: INTRAVENOUS (IV); COMPARISON: CT ABDOMEN PELVIS WO 02/02/2025 10:08 AM FINDINGS: Liver: Fatty infiltration of the liver. Gallbladder and biliary ducts: Previous cholecystectomy. Pancreas: Normal. No ductal dilation. Spleen: Normal. No splenomegaly. Adrenal glands: Normal. No mass. Kidneys and ureters: Normal. No hydronephrosis. Stomach and bowel: Unremarkable. No obstruction. No mucosal thickening. Appendix: No evidence of appendicitis. Intraperitoneal space: Unremarkable. No free air. No significant fluid collection. Vasculature: Unremarkable. No abdominal aortic aneurysm. Lymph nodes: Unremarkable. No enlarged lymph nodes. Urinary bladder: Unremarkable as visualized. Reproductive: Unremarkable as visualized. Bones/joints: Sclerotic changes along the inferior aspects of both sacroiliac joints, without osseous erosion or fusion. No acute fracture. Soft tissues: Unremarkable. IMPRESSION: 1. Sclerotic changes along the inferior aspects of both sacroiliac joints, without osseous erosion or fusion. No acute fracture. 2. No acute abnormality Quality:SDOH Health Related Social Needs: Health related social needs food insecurity transpo insecurity material hardship house/econ circumstance PFSH All Active Problems (Updated 04/03/25 @ 14:55 by Gricelda Robert) Arthralgia of right side of pelvis (Acute) Social History Smoking/Tobacco Use Status: Former Tobacco Use Quit Date: 10/31/19 Smoking risk assessment performed?: Yes Alcohol Intake: former Drug use: Current Sobriety Substance use type: marijuana Details: former Housing: apartment Do you feel safe at home: Yes Do you feel safe in your relationship?: Yes
[2025-04-03 12:36] LABS: Abs Immature Grans 0.02 10^3/uL (0.0-0.06); HCT 40.9 % (36.0-46.0); HGB 14.0 g/dL (11.2-15.7); Immature Grans % 0.3 %; MCH 32.2 pg (27.0-33.0); MCHC 34.2 % (32.0-36.0); MCV 94 fL (80-95); MPV 8.1 fL (8.0-11.0); Platelet Count 277 10^3/uL (130-400); RBC 4.35 10^6/uL (3.93-5.22); RDW 12.0 % (11.7-14.6); RDW-SD 41.9 fL; WBC 7.32 10^3/uL (4.4-10.8)
[2025-04-03] MEDS: Ondansetron 4 MG/2 ML VIAL IVP (12:48)
[2025-04-03] MEDS: Ketorolac 15 MG/ML VIAL IVP (12:48)
[2025-04-03 12:53] LABS: ALT 37 U/L (10-49); AST 32 U/L (<34); Albumin 4.6 g/dL (3.2-5.0); Alkaline Phosphatase 127 U/L (46-116); Anion Gap 8.7 mmol/L (3-11); BUN 14 mg/dL (9-23); Bilirubin, Total 0.50 mg/dL (0.2-1.2); CO2 25.3 mmol/L (20.0-31.0); Calcium 8.9 mg/dL (8.3-10.6); Chloride 108 mmol/L (98-107); Glucose 81 mg/dL (74-106); Potassium 4.4 mmol/L (3.5-5.1); Sodium 142 mmol/L (136-145); Total Protein 7.6 g/dL (5.7-8.2)
[2025-04-03] MEDS: Normal Saline - Diluent 50 ML VIAL IJ (13:31)
[2025-04-03] MEDS: Normal Saline Flush 10 ML SYR IVP (13:32)
[2025-04-03] MEDS: Omnipaque 350 MG/ML 100 ML BTL IJ (13:32)
--- NOTE | 2025-04-03 14:35 | DI.VRAD_ITS ---
PROCEDURE INFORMATION: Exam: CT Abdomen And Pelvis With Contrast Exam date and time: 04/03/2025 1:23 PM Age: 59 years old Clinical indication: Other: Lower abd pain, nausea, diarrhea, si joint pain; Right hip pain, , , and si joint pain TECHNIQUE: Imaging protocol: Computed tomography of the abdomen and pelvis with contrast. Contrast material: OMNIPAQUE 350; Contrast volume: 100 ml; Contrast route: INTRAVENOUS (IV); COMPARISON: CT ABDOMEN PELVIS WO 02/02/2025 10:08 AM FINDINGS: Liver: Fatty infiltration of the liver. Gallbladder and biliary ducts: Previous cholecystectomy. Pancreas: Normal. No ductal dilation. Spleen: Normal. No splenomegaly. Adrenal glands: Normal. No mass. Kidneys and ureters: Normal. No hydronephrosis. Stomach and bowel: Unremarkable. No obstruction. No mucosal thickening. Appendix: No evidence of appendicitis. Intraperitoneal space: Unremarkable. No free air. No significant fluid collection. Vasculature: Unremarkable. No abdominal aortic aneurysm. Lymph nodes: Unremarkable. No enlarged lymph nodes. Urinary bladder: Unremarkable as visualized. Reproductive: Unremarkable as visualized. Bones/joints: Sclerotic changes along the inferior aspects of both sacroiliac joints, without osseous erosion or fusion. No acute fracture. Soft tissues: Unremarkable. IMPRESSION: 1. Sclerotic changes along the inferior aspects of both sacroiliac joints, without osseous erosion or fusion. No acute fracture. 2. No acute abnormality. Dictated and Authenticated by: Davina Peck MD. Orderin Cady Madison MD
[2025-04-03 15:04] VITALS: BP 130/83; PULSE 75; O2SAT 99
[2025-04-03 17:24] VITALS: BP 130/83; PULSE 75; RESP 14; TEMP 36.6; O2SAT 99
== END 2025-04-03 17:27 | disposition home or self-care (01) ==
PROVIDERS: Emergency Provider Nurse Practitioner Family
DX: R10.30 Lower abdominal pain, unspecified; M25.551 Pain in right hip; Z87.440 Personal history of urinary (tract) infections; Z87.442 Personal history of urinary calculi; M54.50 Low back pain, unspecified; Z59.82 Transportation insecurity; Z59.87 Material hardship due to limited financial resources, not elsewhere classified; Z59.89 Other problems related to housing and economic circumstances
CPT/HCPCS: 99284; 99285; 96374; 96375; 80053; 74177; 81003; 85025; J1885; J2405; J3490